=== PATIENT | male | born 1965 | race Caucasian/White ===

== ENCOUNTER → 2023-10-18 | Outpatient (CLI) | payer OTHER | END | disposition home or self-care (01) | LOC: RAH 13:35 | PROVIDERS: ATTEND Internal Medicine Cardiovascular Disease | DX: Z13.6 Encounter for screening for cardiovascular disorders (principal) | CPT/HCPCS: 75571 ==

== ENCOUNTER 2024-02-10 05:48 | Day surgery (SDC) | payer BC ==
[2024-02-08 14:42] LABS: BASOPHILS # (AUTO) 0.05 K/uL (0.00-0.20); BASOPHILS % (AUTO) 0.5 % (0.0-5.0); EOSINOPHILS # (AUTO) 0.17 K/uL (0.00-0.70); EOSINOPHILS % (AUTO) 1.7 % (0.0-8.0); HEMATOCRIT 44.7 % (42-54); IMMATURE GRANULOCYTE ABSOLUTE 0.02 K/uL (0-1); LYMPHOCYTES # (AUTO) 2.1 K/uL (1.0-4.8); LYMPHOCYTES % (AUTO) 21.1 % (21.0-51.0); MEAN CORPUSCULAR HEMOGLOBIN 30.8 pg (27.0-33.0); MEAN CORPUSCULAR VOLUME 90.7 fL (79-99); MONOCYTES # (AUTO) 0.6 K/uL (0.1-1.0); MONOCYTES % (AUTO) 6.3 % (3.0-13.0); NEUTROPHILS # (AUTO) 6.9 K/uL (1.8-7.7); NEUTROPHILS % (AUTO) 70.2 % (40.0-77.0); PLATELET COUNT (AUTO) 253 K/uL (130-400); RED BLOOD CELL COUNT(AUTO) 4.93 MIL/uL (4.50-6.20); RED CELL DISTRIBUTION WIDTH 12.8 % (11.0-15.5); WHITE BLOOD COUNT (AUTO) 9.8 K/uL (4.8-10.8)
[2024-02-08 14:50] LABS: CREATININE 1.1 mg/dL (0.5-1.3); POTASSIUM 4.9 mmol/L (3.5-5.1)
[2024-02-08 14:53] LABS: PARTIAL THROMBOPLASTIN TIME 27.9 SEC (26.3-35.5)
[2024-02-08 15:10] VITALS: BP 138/76; PULSE 53; RESP 14; TEMP 97.6
[2024-02-08 15:11] LABS: B-TYPE NATRIURETIC PEPTIDE 39 pg/mL (0-100)
[2024-02-08 15:17] LABS: APPEARANCE,URINE CLEAR (CLEAR); BILIRUBIN,URINE NEGATIVE (NEGATIVE); COLOR,URINE LIGHT-YELLOW (YELLOW); GLUCOSE, URINE (UA) NEGATIVE (NEGATIVE); KETONES,URINE NEGATIVE (NEGATIVE); LEUKOCYTE ESTERASE ,URINE NEGATIVE Leu/uL (NEGATIVE); NITRATE,URINE NEGATIVE (NEGATIVE); OCCULT BLOOD,URINE NEGATIVE (NEGATIVE); PH,URINE 7.5 (5.0-8.0); PROTEIN,URINE NEGATIVE (NEGATIVE); UROBILINOGEN,URINE 0.2 mg/dL (0.2-1.0)
[2024-02-08 15:18] LABS: ADD UA MICROSCOPIC YES; RBC,URINE 0-1 /HPF (0-1); WBC,URINE 0-1 /HPF (0-1)
[2024-02-08 15:31] LABS: INR 1.08 (0.85-1.15); PROTHROMBIN TIME 11.6 SEC (9.6-11.6)
--- NOTE | 2024-02-08 15:57 | HMCIMG ---
CHEST 1VW REASON: PRE OP COMPARISON: None. FINDINGS: Single view of the chest was obtained. Lungs are clear. Heart size is normal. There is no pulmonary vascular congestion. Mediastinum and bony thorax appear unremarkable. IMPRESSION: 1. Normal single view chest x-ray.
--- NOTE | 2024-02-08 16:26 | EKG ---
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
[~2024-02-10] VITALS: Ht 188 cm; Wt 105.3 kg
[2024-02-10] VITALS (11 sets, daily range): BP systolic 105–147; BP diastolic 64–81; PULSE 52–65; RESP 14–22; TEMP 97.3–98.4
[~2024-02-10 05:48] MED LIST: ASPI-1443 PO; ATOR20TA65 PO; CHOL500051 PO; CYAN50009 PO; FEXOFENADINE PO; ISOS30TA92 PO; LEVO137T2 PO; METO-408 PO; NITR0.4T50 SL; ROSE PO; VITAMIN C PO; ZINC220T4 PO; mvi PO
[2024-02-10] MEDS: 0.9%NACL 1000ML 1,000 ML IV SCH (06:23)
[2024-02-10] MEDS ORDERED: LIDOCAINE HCL 400MG/20ML VIAL ONE (07:06)
[2024-02-10] MEDS ORDERED: HEParin 10,000 UNIT/10ML (1,000 UNIT/ML) VIAL ONE (07:07)
[2024-02-10] MEDS ORDERED: HEParin-NS 1,000 UNIT/500 ML 1,000 ML IV ONE (07:07)
[2024-02-10] MEDS ORDERED: NITROGLYCERIN 50MG VIAL ONE (07:07)
[2024-02-10] MEDS ORDERED: IOHEXOL 350 MG/ML 100ML INFUS..BTL IV ONE (07:07)
[2024-02-10] MEDS ORDERED: IOHEXOL-350 50ML VIAL IV ONE (07:29)
[2024-02-10] MEDS ORDERED: MIDAZOLAM HCL 1 MG/ML 2ML VIAL ONE (07:34)
[2024-02-10] MEDS ORDERED: cloPIDOgrel 300MG TAB ONE (08:03)
--- NOTE | 2024-02-10 08:29 | PRN ---
Cath Procedure Report CATH PROCEDURE REPORT CARDIAC CATHETERIZATION REPORT Date of Service: Feb 10, 2024 Left heart catheterization and PCI report After informed consent the patient was prepped and draped in the usual fashion. He received a total of 1 mg of Versed for conscious sedation. He had in addition 15 cc of 2% xylocaine in the right inguinal area. A six [place] sheath was introduced into the right femoral artery using modified Seldinger technique. A Marlon four right six [place] diagnostic catheter was advanced over guidewire to the aortic root. Wire was removed and catheter engaged into the [place] right coronary artery. The right coronary artery was visualized multiple planes and the catheter was removed. A Marlon four left six [place] diagnostic catheter was advanced over guidewire to the aortic root. Wire was removed and catheter engaged into the left main coronary artery. The left coronary system was visualized multiple planes and catheter was removed. A pigtail catheter was then advanced over guidewire across the aortic valve. Wire was removed and hemodynamics measured. A ventriculogram in the AL projection was performed. A pullback with continuous hemodynamic monitoring was performed and catheter was removed. Findings: The right coronary artery is a right-dominant vessel and has a 50% proximal stenosis. Remainder of the vessel is free of obstruction gives rise to normal PDA and posterolateral branch. The left main coronary artery is a long vessel free of obstruction. 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 The remainder of the vessel was free of obstruction. The circumflex artery is a nondominant vessel. It gives rise to a single large obtuse marginal artery. There was a 60% proximal stenosis in the obtuse marginal artery. LV ejection fraction was 60% with no regional wall motion abnormalities. There was no mitral regurgitation and no aortic stenosis. It was decided to assess the circumflex artery with IFR. The patient received 3000 units of heparin and Marlon four left six [place] guiding catheter was advanced over guidewire to the aortic root. Wire was removed and catheter engaged into the [place] left coronary artery. The IFR wire was advanced to the proximal obtuse marginal artery and normalized. The IFR was then advanced across the area of stenosis and IFR was calculated be 0.95 suggesting that the circumflex lesion she will be treated medically. After discussion with the patient was recommended to proceed with drug-eluting stenting of the mid LAD. The pressure flow wire was then manipulated to the distal LAD and a 2.5 x 12 mm drug-eluting stent was advanced to the area of stenosis and dilated to 12 atmospheres. Stenosis was reduced from 80% to 0% with normal TORRIE flow. There was no dissection. Wires and catheters were removed. Patient received 600 mg of clopidogrel. He had taken aspirin this morning. His ACT postprocedure was 280 and a Perclose closure device applied. The entire procedure was well tolerated without complications. Summary: Successful drug-eluting stent to the culprit mid LAD with a 2.5 by 12 mm drug-eluting stent. Residual 50% proximal RCA and 60% proximal obtuse marginal artery with IFR of 0.95 being managed medically. Report dictated by TRINI Euceda MD, MD Feb 10, 2024 08:29
[2024-02-10] MEDS ORDERED: acetaMINOPHEN WITH coDEINE 1 TAB TAB PO PRN (08:30)
[2024-02-10] MEDS ORDERED: TEMAZepam 30 MG CAP PO PRN (08:30)
[2024-02-10] MEDS ORDERED: ondanSETRON 4MG INJ IVP PRN (08:30)
[2024-02-10] MEDS ORDERED: NITROGLYCERIN 50MG/D5W 250ML 1 BOT IV PRN (08:30)
[2024-02-10] MEDS ORDERED: ASPIRIN 81MG CHEW TAB PO SCH (09:00)
[2024-02-10] MEDS ORDERED: cloPIDOgrel 75MG TAB PO SCH (09:00)
[2024-02-10] MEDS ORDERED: PANTOPrazole 40 MG TAB DR PO SCH (09:00)
[2024-02-10] MEDS: acetaMINOPHEN WITH coDEINE 1 TAB TAB PO PRN (09:33)
== END 2024-02-10 12:30 | disposition home or self-care (01) ==
LOC: DAH 05:48
PROVIDERS: ATTEND Internal Medicine Cardiovascular Disease
DX: R94.39 Abnormal result of other cardiovascular function study (principal); I25.119 Atherosclerotic heart disease of native coronary artery with unspecified angina pectoris; R93.1 Abnormal findings on diagnostic imaging of heart and coronary circulation; E78.5 Hyperlipidemia, unspecified; E03.9 Hypothyroidism, unspecified; Z79.82 Long term (current) use of aspirin; Z79.01 Long term (current) use of anticoagulants; Z79.899 Other long term (current) drug therapy
CPT/HCPCS: 80048; 83880; 85025; 85610; 85730; 81001; 36415 ×2; 71045; 93005; 93458; 93571; 85347; C9600; C1887; C1894; C1874; C1760; C1769; Q9965; J3490 ×2; J7030; J1644 ×2; J2250; Q9967 ×2; A4215; A4222; A4221; A4663; A4216; A4606; A4223 ×3; 99156; 99157

== ENCOUNTER 2024-02-15 20:17 | Observation (INO) | payer BC ==
[~2024-02-15] VITALS: Ht 188 cm; Wt 103.6 kg
[~2024-02-15 20:17] MED LIST changes: -ISOS30TA92 PO
[2024-02-15] MEDS ORDERED: NITROGLYCERIN 0.4 MG SL TAB SL PRN (20:30)
[2024-02-15 21:07] LABS: BASOPHILS # (AUTO) 0.06 K/uL (0.00-0.20); BASOPHILS % (AUTO) 0.6 % (0.0-5.0); EOSINOPHILS # (AUTO) 0.29 K/uL (0.00-0.70); EOSINOPHILS % (AUTO) 3.1 % (0.0-8.0); HEMATOCRIT 45.3 % (42-54); IMMATURE GRANULOCYTE ABSOLUTE 0.02 K/uL (0-1); LYMPHOCYTES % (AUTO) 31.6 % (21.0-51.0); MEAN CORPUSCULAR HEMOGLOBIN 30.4 pg (27.0-33.0); MEAN CORPUSCULAR HGB CONC 34.4 g/dL (32.0-36.0); MEAN CORPUSCULAR VOLUME 88.1 fL (79-99); MONOCYTES # (AUTO) 0.7 K/uL (0.1-1.0); MONOCYTES % (AUTO) 7.5 % (3.0-13.0); NEUTROPHILS # (AUTO) 5.3 K/uL (1.8-7.7); PLATELET COUNT (AUTO) 255 K/uL (130-400); RED BLOOD CELL COUNT(AUTO) 5.14 MIL/uL (4.50-6.20); RED CELL DISTRIBUTION WIDTH 12.6 % (11.0-15.5); WHITE BLOOD COUNT (AUTO) 9.3 K/uL (4.8-10.8)
[2024-02-15 21:09] LABS: APPEARANCE,URINE CLEAR (CLEAR); BILIRUBIN,URINE NEGATIVE (NEGATIVE); COLOR,URINE COLORLESS (YELLOW); GLUCOSE, URINE (UA) NEGATIVE (NEGATIVE); KETONES,URINE NEGATIVE (NEGATIVE); LEUKOCYTE ESTERASE ,URINE NEGATIVE Leu/uL (NEGATIVE); NITRATE,URINE NEGATIVE (NEGATIVE); OCCULT BLOOD,URINE NEGATIVE (NEGATIVE); PH,URINE 6.5 (5.0-8.0); PROTEIN,URINE NEGATIVE (NEGATIVE); UROBILINOGEN,URINE 0.2 mg/dL (0.2-1.0)
[2024-02-15] MEDS: ASPIRIN 81MG CHEW TAB PO STA (21:10)
[2024-02-15] MEDS: ondanSETRON 4MG INJ IVP STA (21:10)
[2024-02-15] MEDS: morPHINE 2 MG SYG IVP STA (21:11)
[2024-02-15 21:14] LABS: ADD UA MICROSCOPIC NO
[2024-02-15 21:21] LABS: CREATININE 1.1 mg/dL (0.5-1.3); POTASSIUM 3.8 mmol/L (3.5-5.1)
[2024-02-15 21:33] LABS: B-TYPE NATRIURETIC PEPTIDE 9 pg/mL (0-100)
--- NOTE | 2024-02-15 22:03 | ERN ---
ED Note History of Present Illness Stated Complaint: C/O CP WITH SOB ONSET 1600 TODAY Chief Complaint: Chest Pain Time Seen by MD: 20:20 Time Seen by Midlevel: 20:25 Dictation: 58-year-old with a history of hypothyroidism coming in complaining of chest tightness onset a few hours ago while he was driving. Patient states she had a recent stent placement on by Dr. Adair. Denies having any fever, nausea, vomiting, cough, congestion. Allergies: Uncoded Allergies: CAT DANDRUFF (Allergy, Unknown, 02/08/24) Home Meds Reported Medications [vitamin c w/awilda] No Conflict Check, 1 TAB PO DAILY 02/08/24 [mvi] No Conflict Check, 1 TAB PO DAILY 02/08/24 Cholecalciferol (Vitamin D3) (Vitamin D3) 125 Mcg (5000 Unit) Capsule, 1 CAP PO DAILY for 30 Days, #30 CAP 0 Refills 02/08/24 Zinc Sulfate (Zinc) 50 Mg Zinc (220 Mg) Tablet, 50 MG PO DAILY, TAB 02/08/24 Cyanocobalamin (Vitamin B-12) (Vitamin B12) 5,000 Mcg Tab.rapdis, 1 TAB PO DAILY for 30 Days, #30 TAB 0 Refills 02/08/24 [fexofenadine] No Conflict Check, 1 TAB PO AM 02/08/24 Aspirin (Aspirin EC) 81 Mg Tablet.dr, 1 TAB PO DAILY for 30 Days, #30 TAB 0 Refills 02/08/24 Atorvastatin Calcium (Atorvastatin Calcium) 20 Mg Tablet, 1 TAB PO DAILY 02/08/24 Metoprolol Succinate (Metoprolol Succinate) 25 Mg Tab.er.24h, 0.5 TAB PO DAILY 02/08/24 Nitroglycerin (Nitroglycerin) 0.4 Mg Tab.subl, 1 TAB SL AD PRN for CHEST PAIN 02/08/24 Levothyroxine Sodium (Levothyroxine Sodium) 137 Mcg Tablet, 1 TAB PO DAILY 02/08/24 Discontinued Reported Medications Isosorbide Mononitrate (Isosorbide Mononitrate ER) 30 Mg Tab.er.24h, 0.5 TAB PO DAILY 02/08/24 Past Medical History Past Medical History: Hypothyroid Additional Past Medical Hx: CARDIAC STENT Surgical History: Other Surgical History Other: CARDIAC STENT Review of System Dictation Constitutional: Negative for fever,chills, and weight loss Eyes: Negative for injury, pain,redness, and discharge ENT: Negative for injury,pain or swelling Cardiovascular: complaining of chest pain. No palpitations, and no edema Respiratory: Negative for shortness of breath, cough, and wheezing, Abdomen/GI: Negative for abdominal pain, nausea, vomiting, diarrhea, and constipation Back: Negative for injury and pain : Negative for injury, bleeding and discharge MS/Extremity: Negative for injury and deformity Skin: Negative for rash, and discoloration Neuro: Negative for headache, weakness, numbness, tingling, and seizure Psych: Negative for suicide ideation, homicidal ideation, and hallucinations Review of Systems: was completed Initial Vital Sign VS Vital Signs Date Time Temp Pulse Resp B/P (MAP) Pulse Ox O2 Delivery O2 Flow Rate FiO2 02/15/24 20:21 98.2 67 20 138/86 98 Room Air 02/15/24 21:00 0 21 Physical Exam Dictation General: awake, alert, NAD Head/Face: Normocephalic, atraumatic Eyes: PERRL, EOMI, vision at baseline ENT: oral cavity clear, TMs clear, no signs of infection Neck: Trachea midline, supple, no nuchal rigidity Cardiovascular: RRR, normal S1/S2, No MRGs, no JVD Respiratory: CTAB, no respiratory distress, No rales or wheezes Abdomen: Soft, non-tender, non-distended, normal bowel sounds, no guarding or rebound. Skin: Warm, dry, normal turgor, no rash MS/Extremity: Pulses equal, no cyanosis, neurovascular intact, FROM Neuro: COAx4, GCS 15, strength 5/5, CN 2-12 intact, normal cerebellar exam, normal gait, Psych: Normal behavior, mood, and affect normal Results (Laboratory/Radiology) Laboratory/Radiology Laboratory Tests Test 02/15/24 20:43 02/15/24 21:18 02/15/24 23:17 White Blood Count 9.3 K/uL (4.8-10.8) Red Blood Count 5.14 MIL/uL (4.50-6.20) Hemoglobin 15.6 g/dL (14.0-18.0) Hematocrit 45.3 % (42-54) Mean Corpuscular Volume 88.1 fL (79-99) Mean Corpuscular Hemoglobin 30.4 pg (27.0-33.0) Mean Corpuscular Hemoglobin Concent 34.4 g/dL (32.0-36.0) Red Cell Distribution Width 12.6 % (11.0-15.5) Platelet Count 255 K/uL (130-400) Mean Platelet Volume 9.9 fL (7.5-10.5) Immature Granulocyte % (Auto) 0.2 % (0-1) Neutrophils (%) (Auto) 57.0 % (40.0-77.0) Lymphocytes (%) (Auto) 31.6 % (21.0-51.0) Monocytes (%) (Auto) 7.5 % (3.0-13.0) Eosinophils (%) (Auto) 3.1 % (0.0-8.0) Basophils (%) (Auto) 0.6 % (0.0-5.0) Neutrophils # (Auto) 5.3 K/uL (1.8-7.7) Lymphocytes # (Auto) 3.0 K/uL (1.0-4.8) Monocytes # (Auto) 0.7 K/uL (0.1-1.0) Eosinophils # (Auto) 0.29 K/uL (0.00-0.70) Basophils # (Auto) 0.06 K/uL (0.00-0.20) Absolute Immature Granulocyte (auto 0.02 K/uL (0-1) Nucleated Red Blood Cells 0.0 % (0.0-0.19) Urine Color COLORLESS (YELLOW) Urine Appearance CLEAR (CLEAR) Urine pH 6.5 (5.0-8.0) Urine Specific Isabella 1.011 (1.001-1.031) Urine Protein NEGATIVE mg/dL (NEGATIVE) Urine Glucose (UA) NEGATIVE mg/dL (NEGATIVE) Urine Ketones NEGATIVE mg/dL (NEGATIVE) Urine Occult Blood NEGATIVE (NEGATIVE) Urine Nitrate NEGATIVE (NEGATIVE) Urine Bilirubin NEGATIVE mg/dL (NEGATIVE) Urine Urobilinogen 0.2 mg/dL (0.2-1.0) Urine Leukocyte Esterase NEGATIVE [place]/uL Sodium Level 139 mmol/L (136-145) Potassium Level 3.8 mmol/L (3.5-5.1) Chloride Level 101 mmol/L (101-111) Carbon Dioxide Level 31 mmol/L (21-32) Blood Urea Nitrogen 17 mg/dL (7-18) Creatinine 1.1 mg/dL (0.5-1.3) Glomerular Filtration Rate Calc 78 mL/min (>90) Random Glucose 112 mg/dL (70-105) H Total Calcium 9.4 mg/dL (8.5-10.1) Total Creatine Kinase 115 U/L (21-232) Troponin I High Sensitivity < 4 ng/L (4-75) L 4 ng/L (4-75) B-Type Natriuretic Peptide 9 pg/mL (0-100) Troponin I < 0.05 ng/mL (0.00-0.05) Labs Reviewed?: Yes EKG Comment: Date:02/15/24 Time:2018 Ventricular rate:61 UT interval:187 QRS duration:4 QT/QTc:388/393 EKG interpretation: Sinus rhythm Reviewed by ED Attending no STEMI interpreted by ER MD ED Course ED Course Orders Procedure Category Date Status Time Vital Signs Per CPOE 02/15/24 Transmitted Routine 20:20 B-Type Natriuretic LAB 02/15/24 Complete Peptide 20:20 Chest 1vw RAD 02/15/24 Resulted 20:20 12 Lead Ekg Tracing- EKG 02/15/24 Logged Technical 20:20 Oxygen By Nc/Pulse Ox CPOE 02/15/24 Transmitted 20:20 Maintain Iv CPOE 02/15/24 Transmitted 20:20 Iv Insertion CPOE 02/15/24 Transmitted 20:20 Cardiac Monitoring CPOE 02/15/24 Transmitted 20:20 Pulse Oximetry With CPOE 02/15/24 Transmitted Vs And Prn 20:20 Cbc With Differential LAB 02/15/24 Complete 20:20 Activity: Br W/Brp CPOE 02/15/24 Transmitted With Assist 20:20 Creatine Kinase, Total LAB 02/15/24 Complete 20:20 Urinalysis Profile LAB 02/15/24 Complete 20:20 Troponin Poc Order LAB 02/15/24 Complete Only 20:20 Bedside Troponin-I LAB.ER 02/15/24 In Process (Poc) 20:20 Basic Metabolic Panel LAB 02/15/24 Complete 20:20 Troponin I High LAB 02/15/24 Complete Sensitivity 20:23 Aspirin 81mg Chew Tab PHA 02/15/24 Complete (Aspirin 81mg Chew 20:24 Morphine 2mg Syg PHA 02/15/24 Complete (Morphine 2mg Syg) 20:24 Ondansetron 4mg Inj PHA 02/15/24 Complete (Zofran 4mg Inj) 20:24 Nitroglycerin 0.4mg PHA 02/15/24 In Process Sl Tab (Nitrostat) 20:30 Troponin I High LAB 02/15/24 Complete Sensitivity 23:10 Current Medications Medications (Trade) Dose Ordered Sig/Flory Route PRN Reason Start Time Stop Time Status Last Admin Dose Admin Aspirin (Aspirin 81mg Chew Tab) 324 mg ONCE STAT PO 02/15/24 20:24 02/15/24 20:25 DC 02/15/24 21:10 Morphine Sulfate (morPHINE 2MG SYG) 2 mg ONCE STAT IVP 02/15/24 20:24 02/15/24 20:25 DC 02/15/24 21:11 Nitroglycerin (Nitrostat) 0.4 mg AD PRN SL CHEST PAIN 02/15/24 20:30 03/16/24 20:29 Ondansetron HCl (zoFRAN 4MG INJ) 4 mg ONCE STAT IVP 02/15/24 20:24 02/15/24 20:25 DC 02/15/24 21:10 Vital Signs Date Time Temp Pulse Resp B/P (MAP) Pulse Ox O2 Delivery O2 Flow Rate FiO2 02/15/24 23:06 51 14 120/76 96 Room Air* 0 21 02/15/24 21:00 98.4 60 14 120/71 96 Room Air* 0 21 02/15/24 20:21 98.2 67 20 138/86 98 Room Air HEART Score Response (Comments) Value History: Moderate suspicion (+1) 1 EKG: Normal 0 Age: 45-65yrs (+1) 1 Risk Factors: 1-2 risk factors (+1) 1 Initial Troponin: Normal limit (0) 0 HEART Score Risk: Low Risk for MACE (1-3) Total 3 Medical Decision Making MDM MDM: 58-year-old with a history of hypothyroidism coming in complaining of chest tightness onset a few hours ago while he was driving. Patient states she had a recent stent placement on by Dr. Adair. Denies having any fever, nausea, vomiting, cough, congestion. Blood work is unremarkable. Both troponins are negative. EKGs shows sinus rhythm. However after nitro, morphine patient states his chest pain came back. States not as severe as when he arrived but still having some chest pain 2/10. We will admit patient for obse rvation. Spoke to FLACO Meyer for benchmark, okay to admit patient. Differential diagnosis: ACS, chest wall pain, atypical chest pain Rationale: Tests considered and ordered secondary to shared decision making include: labs, ECG and radiology Previous outside records reviewed: Old ER visits. Risk of complication and/or morbidity or mortality of patient management: None Medications-Per medication reconciliation Need for hospitalization: Patient does meet criteria for hospitalization. Need for emergency major/minor surgery: No There are no social concerns with this patient. Prescription drug management Prescriptions will include symptomatic care Patient's prior external medical records from other ER visits were reviewed by me as indicated. Prior testing and results from previous visits were reviewed. Prior tests were taken into account with medical decision making and resource utilization, independent historian/historians were used to obtain complete medical history. I independently interpreted the test that were performed, results were reviewed by me and considered findings on radiology if ordered. Medical management and examination interpretation discussions were had by me with other qualified healthcare professionals as indicated for the patient's care. DX & DISP Disposition: Inpatient Decision to Admit Date: Feb 16, 2024 Decision to Admit Time: 00:13 Departure Impression: Primary Impression: Chest pain Condition: Stable Referrals: CAMRYN AGOSTO MD (PCP) I have reviewed the case, and I agree with, Diagnosis and Plan JANET CANALES NP Feb 15, 2024 22:02
--- NOTE | 2024-02-15 22:12 | HMCIMG ---
CHEST 1VW HISTORY: Chest pain COMPARISON: 02/08/2024 FINDINGS: A frontal projection of the chest was obtained. No acute pulmonary infiltrates is seen. The heart is normal in size. Degenerative changes are seen. Prominent interstitial markings are seen. No evidence of aortic calcification is seen. IMPRESSION: 1. No acute pulmonary infiltrate is seen.
[2024-02-16] MEDS ORDERED: ondanSETRON 4MG INJ IVP PRN ×2 (00:30→13:00)
[2024-02-16] MEDS ORDERED: morPHINE 4 MG SYG IVP PRN (00:30)
[2024-02-16] MEDS ORDERED: TEMAZepam 15 MG CAPSULE PO PRN (00:30)
[2024-02-16] MEDS ORDERED: LACTULOSE 20 GM/30 ML UDCUP PO PRN (00:30)
[2024-02-16] MEDS ORDERED: acetaMINOPHEN 325 MG TAB PO PRN (00:30)
[2024-02-16] MEDS ORDERED: acetaMINOPHEN 650 MG SUPPOSITORY RC PRN (00:30)
[2024-02-16] MEDS ORDERED: hydrALAZine 20MG/ML VIAL IV PRN (00:30)
--- NOTE | 2024-02-16 00:33 | HP ---
[facility] HISTORY & PHYSICAL Date Patient Seen: Feb 16, 2024 Time of Visit: 00:33 Supervising Physician: Dr. Dumont Primary Care Physician: CAMRYN AGOSTO MD (PCP) Outpatient Specialists: Inpatient Consults: Cardiology PROBLEM LIST: Acute chest pain r/o coronary syndrome, negative troponin x3 -s/p left heart catheterization with cardiac stent on 02/10/[address] Mohit Adair LV ejection fraction was 60% with no regional wall motion abnormality, per cardiac catheterization report on 02/10/2024 Hypertension Hypothyroidism Hypercholesteremia HPI: Ms Garcia is a 58-year-old with a history of hypothyroidism who presented to [facility] ED for evaluation of complaining of chest tightness onset a few hours ago while he was driving. Patient stated she had a recent stent placement on by Dr. Adair. Denies having any shortness of breath, fever, nausea, vomiting, cough, congestion. Labs were remarkable. Troponin negative x3. normal BNP. Chest x-ray: No acute pulmonary infiltrates. EKG: Sinus rhythm, HR 61 beats per minute. Patient was seen/assessed by me in room ED 9. The patient appeared comfortable, denied chest pain during my assessment. Breathing was even, unlabored. I informed the patient of labs, diagnostics, and plan of care. The patient verbalized understanding and is in agreement with the plan. Plan and assessment are listed below. PAST MEDICAL HX: see above PAST SURGICAL HX: Cardiac stents on 02/10/2024 SOCIAL HISTORY: No tobacco, ETOH, or illicit drug use Uncoded Allergies: CAT DANDRUFF (Allergy, Unknown, 02/08/24) REVIEW OF SYSTEMS: 12 point ROS reviewed with patient. Pertinent positives mentioned above. Otherwise negative. PHYSICAL EXAM: GENERAL: Alert, awake oriented x 3 HEENT: EOMI, Sclera non icteric, moist mucosa NECK: Supple, no JVD, trachea midline LUNGS: Clear breath sounds bilaterally. No wheezes HEART: Regular rate and rhythm. Normal S1 and S2, without murmurs ABD: Abdomen soft, nontender. Bowel sounds present EXT: No clubbing cyanosis or edema NEURO: Alert and oriented x3. No neuro deficits noted. Vital Signs (last 8hr) Date Time Temp Pulse Resp B/P (MAP) Pulse Ox O2 Delivery O2 Flow Rate FiO2 02/16/24 00:27 46 14 111/76 96 Room Air* 0 21 02/15/24 23:06 51 14 120/76 96 Room Air* 0 21 02/15/24 21:00 98.4 60 14 120/71 96 Room Air* 0 21 02/15/24 20:21 98.2 67 20 138/86 98 Room Air LABS: Hematology Labs: Test 02/15/24 20:43 Range/Units White Blood Count 9.3 4.8-10.8 K/uL Red Blood Count 5.14 4.50-6.20 MIL/uL Hemoglobin 15.6 14.0-18.0 g/dL Hematocrit 45.3 42-54 % Mean Corpuscular Volume 88.1 79-99 fL Mean Corpuscular Hemoglobin 30.4 27.0-33.0 pg Mean Corpuscular Hemoglobin Concent 34.4 32.0-36.0 g/dL Red Cell Distribution Width 12.6 11.0-15.5 % Platelet Count 255 130-400 K/uL Mean Platelet Volume 9.9 7.5-10.5 fL Immature Granulocyte % (Auto) 0.2 0-1 % Neutrophils (%) (Auto) 57.0 40.0-77.0 % Lymphocytes (%) (Auto) 31.6 21.0-51.0 % Monocytes (%) (Auto) 7.5 3.0-13.0 % Eosinophils (%) (Auto) 3.1 0.0-8.0 % Basophils (%) (Auto) 0.6 0.0-5.0 % Neutrophils # (Auto) 5.3 1.8-7.7 K/uL Lymphocytes # (Auto) 3.0 1.0-4.8 K/uL Monocytes # (Auto) 0.7 0.1-1.0 K/uL Eosinophils # (Auto) 0.29 0.00-0.70 K/uL Basophils # (Auto) 0.06 0.00-0.20 K/uL Absolute Immature Granulocyte (auto 0.02 0-1 K/uL Nucleated Red Blood Cells 0.0 0.0-0.19 % Chemistry Labs: Test 02/15/24 23:17 02/15/24 21:18 02/15/24 20:43 Range/Units Troponin I High Sensitivity 4 4-75 ng/L Troponin I < 0.05 0.00-0.05 ng/mL Sodium Level 139 136-145 mmol/L Potassium Level 3.8 3.5-5.1 mmol/L Chloride Level 101 101-111 mmol/L Carbon Dioxide Level 31 21-32 mmol/L Blood Urea Nitrogen 17 7-18 mg/dL Creatinine 1.1 0.5-1.3 mg/dL Glomerular Filtration Rate Calc 78 >90 mL/min Random Glucose 112 H 70-105 mg/dL Total Calcium 9.4 8.5-10.1 mg/dL Total Creatine Kinase 115 21-232 U/L B-Type Natriuretic Peptide 9 0-100 pg/mL DIAGNOSTICS / RADIOLOGY RESULTS: [ ] PLAN Admit to medical floor with telemetry monitoring. Troponin and EKGs series. Cardiology consult in a.m.. 2D echo in a.m. with heart clinic to read. P.r.n. medications for: Fever, nausea, vomiting, constipation, hypertension. Oxygen supplementation as needed to maintain oxygen level equal to greater than 92%. Nitroglycerin sublingually as needed for chest pain. Fvadjhl40 mg p.o. daily. Atorvastatin 40 mg p.o. daily. Blood pressure checks every4 hours and as needed. Reconciled home meds: Isosorbide Mononitrate, Plavix, metoprolol succinate, aspirin, atorvastatin, nitroglycerin sublingual. Reconciled remaining medications once available. Glucometer checks a.c. and HS with insulin regular sliding scale. Monitor renal and liver function. Monitor electrolytes and treat accordingly. A.m. labs: CBC, CMP, Mag, phos, TSH, A1c, troponin. DVT and GI prophylaxis: Lovenox and Pepcid. NEURO: Minimize central acting medications as possible. Maintain fall precautions, adequate lighting during the day PULMONARY: Supplemental 02 as needed. Maintain aspiration precautions at all times CARDIOVASCULAR: Follow hemodynamics. Vital signs per facility protocol GI & NUTRITION: Continue with nutritional support. Continue stool softeners and laxatives as needed. KIDNEYS & ELECTROLYTES: Strict monitoring of intake, output and overall fluid balance. Avoid nephrotoxic medications to the extent possible. Medications to be dosed according to renal function. Monitor electrolytes and replace as needed ENDOCRINE: Maintain blood glucose between 100-180 at all times. Hypoglycemia protocol in place INFECTIOUS DISEASE: Trend temperature, WBC and procalcitonin level Follow cultures, deescalate antibiotics as soon as possible. Panculture if new onset fever ONCOLOGY/HEMATOLOGY/COAGULATION: Monitor for s/s of bleeding Monitor hemoglobin, coagulation studies as needed SKIN: Pressure ulcer prevention per facility protocol Specialty mattress ORTHO/REHAB: Continue PT/OT Prophylaxis: Continue GI and DVT prophylaxis Code Status: Full Resuscitation Disposition: MANOJ PEÑA Feb 16, 2024 00:33
[2024-02-16] MEDS: atorVAStatin 40 MG TABLET PO SCH (01:05)
[2024-02-16] MEDS: NITROGLYCERIN 1GM OINT 1 INCH/1GM TD SCH (01:06)
[2024-02-16 06:23] LABS: HEMOGLOBIN A1C 5.5 % (4.0-6.0)
--- NOTE | 2024-02-16 06:58 | NUR ---
REPORT RECEIVED FROM VAN LUCIO
[2024-02-16] MEDS: INSULIN humuLIN R 100 UNIT/ML 3ML SQ SCH (07:30)
--- NOTE | 2024-02-16 07:30 | NUR ---
ASSESSMENT: PT FOUND IN SUPINE POSITION W/HOB ELEVATED SEMI FOWLERS. CURRENTLY PT DENIES SOB/CP. HE SAYS IT IS INTERMITTENT PRICKS TO HIS CHEST. CARDIO/PULMONARY: PT CURRENTLY DENIES ANY CP AT THIS MOMENT. S1S2 AUSCULTATED APICALLY. SB/SR NO ECTOPY NOTED. 2+PULSES TO BILATERALLY RADIAL/DORSALIS PEDAL SITES. NO EDEMA NOTED TO LE'S BILATERALLY. CAP REFILL LESS THAN 3 SECONDS. LSCTA TO ALL LUNG OWENS. NO CYANOSIS NOTED TO BILATERAL NAIL BEDS ON HANDS. PT DENIES SOB AT THIS TIME AND SATS>96% ROOM AIR OXYGEN. SALINE LOCK TO L AC NEURO: PT A/O X 4. FOLLOWS ALL COMMANDS BOTH SIMPLE AND COMPLEX. PT NEUROLOGICALLY INTACT. MUSCULO/INTEG: PT ABLE TO MOVE ALL EXTREMITIES W/OUT LIMITATIONS. DENIES ANY COMPLAINTS AT THIS TIME. PT SKIN INTACT. THERE IS BRUISING TO R GROIN AREA WHERE HIS HEART CATH WAS DONE LAST WEDNESDAY/7 DAYS PRIOR. OTHERWISE SKIN IS DRY TO PALPATION. PT STATES HE IS ABLE TO AMBULATE W/OUT ANY DIFFICULTIES GI/: ABD SOFT TO PALPATION. DENIES ABD PAIN. DENIES CONSTIPATION. DENIES ANY URINARY ISSUES/COMPLAINTS AT THIS TIME. PT
--- NOTE | 2024-02-16 08:21 | EKG ---
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
--- NOTE | 2024-02-16 08:39 | NUR ---
2 D ECHO: TECH JUST ARRIVED AT BEDSIDE.
--- NOTE | 2024-02-16 08:45 | NUR ---
MOHSEN LICENSING ENGINEER WAS AT BEDSIDE TO SEE THE PT.
[2024-02-16] MEDS ORDERED: ISOSORBIDE MONO 30MG SR TAB PO SCH ×2 (09:00)
[2024-02-16] MEDS: ENOXAPARIN SODIUM 40 MG/0.4 ML SYRINGE SQ SCH (09:00)
[2024-02-16] MEDS: metOPROLol sucCINATE 25 MG TAB.SR.24H PO SCH (09:00)
[2024-02-16] MEDS ORDERED: METO-408 PO (09:02)
[2024-02-16] MEDS ORDERED: CLOP-31 PO (09:02)
--- NOTE | 2024-02-16 09:05 | NUR ---
MEDICATION RECONCILIATION: DONE
--- NOTE | 2024-02-16 09:20 | NUR ---
CARDIOLOGY CONSULT: GEN STRICKLAND HERE TO SEE THE PT.
--- NOTE | 2024-02-16 09:34 | NUR ---
CARDIOLOGY CONSULT: DR STUART JUST NOW ARRIVED AND IS AT BEDSIDE. HE WAS INFORMED WELL PTS SBP IN THE 90-LOW 100'S.
[2024-02-16] MEDS ORDERED: 0.9% NACL 500ML IV.SOLN 500 ML IV SCH (10:00)
--- NOTE | 2024-02-16 10:00 | NUR ---
BP MED HELD D/T BPS IN THE 90-LOW 100'S. DR STUART WAS MADE AWARE AND NO NEW CHANGES AT THIS TO MED DOSE.
--- NOTE | 2024-02-16 10:30 | NUR ---
HEART CATH: JORGE L BELTRÁN RN-HOLD LOVENOX BUT GIVE PLAVIX DOSE.
[2024-02-16] MEDS: ASPIRIN 81MG CHEW TAB PO SCH (10:37)
[2024-02-16] MEDS: doCUSate SODIUM 100 MG CAP PO PRN (10:37)
[2024-02-16] MEDS: cloPIDOgrel 75MG TAB PO SCH (10:37)
[2024-02-16] MEDS: FAMOTIDINE 20MG TAB PO SCH (10:37)
--- NOTE | 2024-02-16 10:40 | CONS ---
[facility] CARDIOLOGY CONSULTATION REPORT Cardiology consultation note dictated for Mohit Adair MD Date Patient Seen: Feb 16, 2024 Requesting Physician: EMELIA Coffman Reason for Consultation: Chest pain History of Present Illness: This is a 58 year old male with a past medical history of dyslipidemia, hypothyroidism, cardiac murmur, normal nuclear stress test year unknown in [facility], [place] coronary calcium score of 312, a subsequent graded exercise tolerance test was positive in [facility] stage 2, and recent LHC on 02/10/2024 with successful drug-eluting stent to the culprit mid LAD with a 2.5x12 mm MARYAM, there is residual 50% stenosis to the proximal RCA and 60% stenosis to the proximal obtuse marginal artery with IFR of 0.95 being managed medically who presented to the ED with complaints of left-sided chest pressure/tightness that has been intermittent. Cardiology has been consulted for recommendations. Troponins have been negative x3. EKG demonstrating normal sinus rhythm with a heart rate of 61bpm with no signs of ischemia present. The patient voices compliance with aspirin and Plavix. An echocardiogram has been done. He currently denies palpitations, shortness of breath, dizziness, nausea, or vomiting does admit to intermittent, left-sided chest discomfort. We will take the patient for a LHC today for further evaluation. Past Medical History: As per HPI and summarized below Past Surgical History: None Family History: The patient's mother has hypertension and heart disease. The patient's father has hypertension. The patient's sibling has diabetes mellitus type 2. Social History: The patient lives with his . Habits: The patient denies alcohol, tobacco, or illicit drug use. Home Meds: Uciptc94 mg daily Vjwvceb45 mg daily Atorvastatin 20 mg daily Metoprolol tespjylil25 mg daily [id number] mcg daily Nitroglycerin 0.4 mg sublingual p.r.n. chest pain Vitamin-D 5000 units daily Vitamin B12 5000 mcg daily Zinc sulfate 50 mg daily Multivitamin tab daily Vitamin-C with awilda 1 tab daily Fexofenadine 1 tab daily Current Meds: Current Medications Medications Dose Ordered Sig/Flory Start Time Stop Time Status Last Admin Nitroglycerin 0.4 mg AD PRN 02/15/24 20:30 03/16/24 20:29 Famotidine 20 mg BID 02/16/24 09:00 03/17/24 08:59 Enoxaparin Sodium 40 mg DAILY 02/16/24 09:00 03/17/24 08:59 Acetaminophen 650 mg Q6H PRN 02/16/24 00:30 03/17/24 00:29 Acetaminophen 650 mg Q6H PRN 02/16/24 00:30 03/17/24 00:29 Lactulose 20 gm Q6H PRN 02/16/24 00:30 03/17/24 00:29 Docusate Sodium 100 mg BID PRN 02/16/24 00:30 03/17/24 00:29 Temazepam 15 mg HS PRN 02/16/24 00:30 03/17/24 00:29 Ondansetron HCl 4 mg Q6H PRN 02/16/24 00:30 03/17/24 00:29 Hydralazine HCl 10 mg Q2H PRN 02/16/24 00:30 03/17/24 00:29 Insulin Human Regular INSULIN SLIDING SCAL... ACHS 02/16/24 07:30 03/17/24 07:29 Atorvastatin Calcium 40 mg HS 02/16/24 00:35 03/17/24 00:34 02/16/24 01:05 Aspirin 81 mg DAILY 02/16/24 09:00 03/17/24 08:59 Metoprolol Succinate 25 mg DAILY 02/16/24 09:00 03/17/24 08:59 Clopidogrel Bisulfate 75 mg DAILY 02/16/24 09:00 03/17/24 08:59 Morphine Sulfate 2 mg Q4H PRN 02/16/24 08:30 02/23/24 00:29 Levothyroxine Sodium 25 mcg SYN 02/17/24 06:30 03/18/24 06:29 Levothyroxine Sodium 112 mcg SYN 02/17/24 06:30 03/18/24 06:29 Sodium Chloride 500 ml @ 0 mls/hr Q0M 02/16/24 10:00 03/17/24 09:59 Review of Systems: CONST: No fever, fatigue, or weight changes. EYES: No recent vision problems. ENT: No congestion, ear pain, or sore throat. C/V: No palpitations or edema. Admits to intermittent left-sided chest discomfort RESP: No cough, congestion, wheezing or shortness of breath. GI: No abdominal pain, nausea, vomiting, constipation, or diarrhea. : No incontinence or dysuria. SKIN: No rash. NEURO: No headache, focal numbness or weakness, dizziness, or seizures. PSYCH: No depression or anxiety. HEME: No abnormal bruising or bleeding. LYMPH: No swollen glands. Physical Examination: GENERAL: No acute distress. HEAD: Normal with no signs of head trauma. EYES: PERRLA, EOMI, conjunctiva and sclera normal. ENT: Hearing grossly intact, normal oropharynx. NECK: Supple without JVD. There is no tenderness, lymphadenopathy, or masses. No thyromegaly. Normal carotid upstrokes without bruits. LUNGS: Clear breath sounds bilaterally. No wheezes, or rhonchi. HEART: Normal rate and rhythm. Normal S1 and S2 without murmurs, gallop or rub. VASC: Bilateral DP pulses 2+. ABD: Bowel sounds normal, soft, nontender, no masses, no organomegaly. No audible bruits. : Not examined LYMPH: No lymphadenopathy noted. EXT: No clubbing, cyanosis or edema. SKIN: No rashes or lesions noted. Right groin is soft to touch with Band-Aid in place NEURO: Awake, alert, and oriented x3. No focal sensory or strength deficits noted. Vital Signs (last 8hr) Date Time Temp Pulse Resp B/P (MAP) Pulse Ox O2 Delivery O2 Flow Rate FiO2 02/16/24 06:34 47 14 90/54 95 Room Air* 0 21 02/16/24 04:44 47 14 97/57 94 Room Air* 0 21 Laboratory: Hematology Labs: Test 02/15/24 20:43 Range/Units White Blood Count 9.3 4.8-10.8 K/uL Red Blood Count 5.14 4.50-6.20 MIL/uL Hemoglobin 15.6 14.0-18.0 g/dL Hematocrit 45.3 42-54 % Mean Corpuscular Volume 88.1 79-99 fL Mean Corpuscular Hemoglobin 30.4 27.0-33.0 pg Mean Corpuscular Hemoglobin Concent 34.4 32.0-36.0 g/dL Red Cell Distribution Width 12.6 11.0-15.5 % Platelet Count 255 130-400 K/uL Mean Platelet Volume 9.9 7.5-10.5 fL Immature Granulocyte % (Auto) 0.2 0-1 % Neutrophils (%) (Auto) 57.0 40.0-77.0 % Lymphocytes (%) (Auto) 31.6 21.0-51.0 % Monocytes (%) (Auto) 7.5 3.0-13.0 % Eosinophils (%) (Auto) 3.1 0.0-8.0 % Basophils (%) (Auto) 0.6 0.0-5.0 % Neutrophils # (Auto) 5.3 1.8-7.7 K/uL Lymphocytes # (Auto) 3.0 1.0-4.8 K/uL Monocytes # (Auto) 0.7 0.1-1.0 K/uL Eosinophils # (Auto) 0.29 0.00-0.70 K/uL Basophils # (Auto) 0.06 0.00-0.20 K/uL Absolute Immature Granulocyte (auto 0.02 0-1 K/uL Nucleated Red Blood Cells 0.0 0.0-0.19 % Chemistry Labs: Test 02/16/24 08:39 02/16/24 05:47 02/15/24 21:18 02/15/24 20:43 Range/Units Whole Blood Glucose 93 70-110 MG/DL Hemoglobin A1c 5.5 4.0-6.0 % Estimated Average Glucose (eAG) 111 70-126 mg/dL Troponin I High Sensitivity 4 4-75 ng/L Thyroid Stimulating Hormone (TSH) 1.90 0.36-3.74 uIU/mL Troponin I < 0.05 0.00-0.05 ng/mL Sodium Level 139 136-145 mmol/L Potassium Level 3.8 3.5-5.1 mmol/L Chloride Level 101 101-111 mmol/L Carbon Dioxide Level 31 21-32 mmol/L Blood Urea Nitrogen 17 7-18 mg/dL Creatinine 1.1 0.5-1.3 mg/dL Glomerular Filtration Rate Calc 78 >90 mL/min Random Glucose 112 H 70-105 mg/dL Total Calcium 9.4 8.5-10.1 mg/dL Total Creatine Kinase 115 21-232 U/L B-Type Natriuretic Peptide 9 0-100 pg/mL Diagnostics / Radiology: Impression and Plan: Chest pain Coronary angiogram on 02/10/2024 s/p mid LAD stenting with a 2.5x12mm MARYAM Residual 50% stenosis to the proximal RCA and 60% stenosis to the proximal obtuse marginal artery with IFR of 0.[address] coronary calcium score and positive graded exercise tolerance test Hypothyroidism Dyslipidemia Chest pain Troponins have been negative x3 EKG demonstrated normal sinus rhythm with a heart rate of 61bpm with no signs of ischemia present -Due to residual stenosis, the patient will undergo a coronary angiogram with possible PCI today -Continue Plavix 75 mg daily, Aspirin 81 mg daily, Atorvastatin 20 mg daily, Me toprolol succinate 25 mg daily (hold if sbp<100mmHg or hr<60bpm) GEN SHEIKH [facility] Feb 16, 2024 10:40
--- NOTE | 2024-02-16 10:46 | NUR ---
JUST NOW OOB TO VOID AGAIN W/A STEADY AND EVEN GAIT
[2024-02-16] MEDS ORDERED: LIDOCAINE HCL 400MG/20ML VIAL ONE (11:32)
[2024-02-16] MEDS ORDERED: IOHEXOL 350 MG/ML 100ML INFUS..BTL IV ONE (11:32)
[2024-02-16] MEDS ORDERED: HEParin 10,000 UNIT/10ML (1,000 UNIT/ML) VIAL ONE (11:33)
[2024-02-16] MEDS ORDERED: HEParin-NS 1,000 UNIT/500 ML 1,000 ML IV ONE (11:33)
[2024-02-16] MEDS ORDERED: NITROGLYCERIN 50MG VIAL ONE (11:33)
--- NOTE | 2024-02-16 11:37 | NUR ---
KATINA LUCIO FROM [employer] HERE TO VISUAL ASSOCIATE AND TRANSFER PT TO [employer].
[2024-02-16] MEDS ORDERED: FENTanyl CITRate PF 50 MCG/1 ML 2ML VIAL ONE (11:53)
[2024-02-16] MEDS ORDERED: MIDAZOLAM HCL 1 MG/ML 2ML VIAL ONE (11:53)
[2024-02-16] MEDS ORDERED: ATROPINE 1MG SYG IVP ONE (12:06)
--- NOTE | 2024-02-16 12:20 | PN ---
[facility] PROGRESS NOTE Date Patient Seen: Feb 16, 2024 Time of Visit: 12:16 Supervising Physician: Jaki Yuen Primary Care Physician: CAMRYN AGOSTO MD (PCP) Outpatient Specialists: Inpatient Consults: Cardiology PROBLEM LIST: Acute chest pain r/o coronary syndrome, negative troponin x3 -s/p left heart catheterization with cardiac stent on 02/10/[address] Mohit Adair LV ejection fraction was 60% with no regional wall motion abnormality, per cardiac catheterization report on 02/10/2024 Hypertension Hypothyroidism Hypercholesteremia Plan Summary: Supplemental oxygen as needed Telemetry monitoring Trend troponins x3 Continue aspirin Continue atorvastatin Continue Plavix Continue metoprolol Obtain 2D echo Follow Cardiology recs INTERVAL HISTORY: Ms Garcia is a 58-year-old with a history of hypothyroidism who presented to [facility] for evaluation of complaining of chest tightness onset a few hours ago while he was driving. Patient stated she had a recent stent placement on 02/10/[address] Adair. Denies having any shortness of breath, fever, nausea, vomiting, cough, congestion. Labs were remarkable. Troponin negative x3. normal BNP. Chest x-ray: No acute pulmonary infiltrates. EKG: Sinus rhythm, HR 61 beats per minute. Patient was seen/assessed by me in room ED 9. The patient appeared comfortable, denied chest pain during my assessment. Breathing was even, unlabored. I informed the patient of labs, diagnostics, and plan of care. The patient verbalized understanding and is in agreement with the plan. 02/15 - patient was seen and evaluated in the ED accompanied by his . Patient does not appear to be in any acute distress at this time. Patient denies chest discomfort, chest pain or shortness on breath with exertion. Troponins were negative x3. 2D echo has been completed and currently pending report. Patient was seen by Cardiology and plan for left heart catheterization today for further evaluation cardiac stent. We will continue to follow up. REVIEW OF SYSTEMS: 12 point ROS reviewed with patient. Pertinent positives mentioned above. Otherwise negative. PHYSICAL EXAM: GENERAL: Alert, awake oriented x 3 HEENT: EOMI, Sclera non icteric, moist mucosa NECK: Supple, no JVD, trachea midline LUNGS: Clear breath sounds bilaterally. No wheezes HEART: Regular rate and rhythm. Normal S1 and S2, without murmurs ABD: Abdomen soft, nontender. Bowel sounds present EXT: No clubbing cyanosis or edema NEURO: Alert and oriented x3. No neuro deficits noted. Vital Signs (last 8hr) Date Time Temp Pulse Resp B/P (MAP) Pulse Ox O2 Delivery O2 Flow Rate FiO2 02/16/24 09:00 51 17 95/62 98 Room Air* 0 21 02/16/24 06:34 47 14 90/54 95 Room Air* 0 21 02/16/24 04:44 47 14 97/57 94 Room Air* 0 21 LABS: Hematology Labs: Test 02/15/24 20:43 Range/Units White Blood Count 9.3 4.8-10.8 K/uL Red Blood Count 5.14 4.50-6.20 MIL/uL Hemoglobin 15.6 14.0-18.0 g/dL Hematocrit 45.3 42-54 % Mean Corpuscular Volume 88.1 79-99 fL Mean Corpuscular Hemoglobin 30.4 27.0-33.0 pg Mean Corpuscular Hemoglobin Concent 34.4 32.0-36.0 g/dL Red Cell Distribution Width 12.6 11.0-15.5 % Platelet Count 255 130-400 K/uL Mean Platelet Volume 9.9 7.5-10.5 fL Immature Granulocyte % (Auto) 0.2 0-1 % Neutrophils (%) (Auto) 57.0 40.0-77.0 % Lymphocytes (%) (Auto) 31.6 21.0-51.0 % Monocytes (%) (Auto) 7.5 3.0-13.0 % Eosinophils (%) (Auto) 3.1 0.0-8.0 % Basophils (%) (Auto) 0.6 0.0-5.0 % Neutrophils # (Auto) 5.3 1.8-7.7 K/uL Lymphocytes # (Auto) 3.0 1.0-4.8 K/uL Monocytes # (Auto) 0.7 0.1-1.0 K/uL Eosinophils # (Auto) 0.29 0.00-0.70 K/uL Basophils # (Auto) 0.06 0.00-0.20 K/uL Absolute Immature Granulocyte (auto 0.02 0-1 K/uL Nucleated Red Blood Cells 0.0 0.0-0.19 % Chemistry Labs: Test 02/16/24 08:39 02/16/24 05:47 02/15/24 21:18 02/15/24 20:43 Range/Units Whole Blood Glucose 93 70-110 MG/DL Hemoglobin A1c 5.5 4.0-6.0 % Estimated Average Glucose (eAG) 111 70-126 mg/dL Troponin I High Sensitivity 4 4-75 ng/L Thyroid Stimulating Hormone (TSH) 1.90 0.36-3.74 uIU/mL Troponin I < 0.05 0.00-0.05 ng/mL Sodium Level 139 136-145 mmol/L Potassium Level 3.8 3.5-5.1 mmol/L Chloride Level 101 101-111 mmol/L Carbon Dioxide Level 31 21-32 mmol/L Blood Urea Nitrogen 17 7-18 mg/dL Creatinine 1.1 0.5-1.3 mg/dL Glomerular Filtration Rate Calc 78 >90 mL/min Random Glucose 112 H 70-105 mg/dL Total Calcium 9.4 8.5-10.1 mg/dL Total Creatine Kinase 115 21-232 U/L B-Type Natriuretic Peptide 9 0-100 pg/mL DIAGNOSTICS / RADIOLOGY RESULTS: [ ] PLAN Admit to medical floor with telemetry monitoring. Troponin and EKGs series. Cardiology consult in a.m.. 2D echo in a.m. with heart clinic to read. P.r.n. medications for: Fever, nausea, vomiting, constipation, hypertension. Oxygen supplementation as needed to maintain oxygen level equal to greater than 92%. Nitroglycerin sublingually as needed for chest pain. Xtungnh00 mg p.o. daily. Atorvastatin 40 mg p.o. daily. Blood pressure checks every4 hours and as needed. Reconciled home meds: Isosorbide Mononitrate, Plavix, metoprolol succinate, aspirin, atorvastatin, nitroglycerin sublingual. Reconciled remaining medications once available. Glucometer checks a.c. and HS with insulin regular sliding scale. Monitor renal and liver function. Monitor electrolytes and treat accordingly. A.m. labs: CBC, CMP, Mag, phos, TSH, A1c, troponin. DVT and GI prophylaxis: Lovenox and Pepcid. NEURO: Minimize central acting medications as possible. Maintain fall precautions, adequate lighting during the day PULMONARY: Supplemental 02 as needed. Maintain aspiration precautions at all times CARDIOVASCULAR: Follow hemodynamics. Vital signs per facility protocol Continue cardioprotective medication Left heart catheterization today GI & NUTRITION: Continue with nutritional support. Continue stool softeners and laxatives as needed. KIDNEYS & ELECTROLYTES: Strict monitoring of intake, output and overall fluid balance. Avoid nephrotoxic medications to the extent possible. Medications to be dosed according to renal function. Monitor electrolytes and replace as needed ENDOCRINE: Maintain blood glucose between 100-180 at all times. Hypoglycemia protocol in place INFECTIOUS DISEASE: Trend temperature, WBC and procalcitonin level Follow cultures, deescalate antibiotics as soon as possible. Panculture if new onset fever ONCOLOGY/HEMATOLOGY/COAGULATION: Monitor for s/s of bleeding Monitor hemoglobin, coagulation studies as needed SKIN: Pressure ulcer prevention per facility protocol Specialty mattress ORTHO/REHAB: Continue PT/OT Prophylaxis: Continue GI and DVT prophylaxis Code Status: Full Resuscitation Disposition: Home once cleared by Cardiology. Total time spent 30 minutes. ATTESTATION BY PHYSICIAN The patient has been seen and evaluated, the case has been discussed with the ELECTRONIC COILS SUPERVISOR, I agree with the clinical findings and plan of care. Yung Yuen MD, ECTOR N ELECTRONIC COILS SUPERVISOR Feb 16, 2024 12:20
[2024-02-16] MEDS ORDERED: cloPIDOgrel 75MG TAB ONE (12:48)
--- NOTE | 2024-02-16 12:56 | PRN ---
Cath Procedure Report CATH PROCEDURE REPORT CARDIAC CATHETERIZATION REPORT Date of Service: Feb 16, 2024 This patient underwent recent stenting of the mid LAD with a 2.5 x 12 mm drug- eluting stent. He had a residual 60% circumflex artery and residual 50% RCA stenosis. He presented back to the hospital with recurrent chest pain similar to his initial angina. Troponins are normal and EKG was normal. After discus gopi of options the patient requested to proceed with left heart catheterization and possible PCI. After informed consent was brought to the cleaning laborer and prepped and draped in the usual fashion. He received 1 mg of Versed for conscious sedation. He received a total of 15 cc of 2% xylocaine in the left inguinal area. At that point a six Telugu sheath was placed in the left femoral artery using modified Seldinger technique. A Marlon four left six Telugu diagnostic catheter was advanced over guidewire to the aortic root. Wire was removed and catheter engaged the left main coronary artery. The left coronary system was visualized in multiple planes the catheter was removed. Findings: The left main coronary artery is free of obstruction. The left circumflex artery is free of obstruction is a small nondominant vessel. There was a large obtuse marginal artery with a 60% proximal stenosis. The LAD has a patent mid LAD stent however there was TORRIE two flow and it was felt that the stent was under deployed. A Marlon four six Telugu guiding catheter was then advanced over guidewire to the aortic root. Wire was removed and catheter engaged in left main coronary artery. The patient received 87479 units of heparin. At that point a choice PT extra-support wire was placed across the area of stenosis into the distal LAD. The mid LAD stent was ballooned with a 2.75 noncompliant balloon to 12 atmospheres. TORRIE flow was noted to improve. It was still some residual dye noted at the proximal edge of the stent and a 2nd 2.75 by 8 mm drug-eluting stent was placed in the proximal mid LAD stent and dilated to 12 atmospheres. The balloon was removed and a 2.75 noncompliant balloon was advanced across the mid LAD stent and dilated to 18 atmospheres. Final results showed normal TORRIE flow no dissection and no residual stenosis. ACT postprocedure was 350. A sheathogram performed and Perclose device utilized to close the arteriotomy. Patient will be transferred to the floor for further management. He was given 150 mg of additional clopidogrel at the end of the procedure. He will continue with his usual dose of aspirin 81 mg daily and 75 mg daily which he took this morning. Summary: Successful PCI to the mid LAD stent which was felt to be under deployed with a 2.75 by 8 mm drug-eluting stent with improvement in TORRIE flow from TORRIE two to TORRIE three Report dictated by TRINI Euceda MD, MD Feb 16, 2024 12:56
[2024-02-16] MEDS ORDERED: TEMAZepam 30 MG CAP PO PRN (13:00)
[2024-02-16] MEDS ORDERED: NITROGLYCERIN 50MG/D5W 250ML 1 BOT IV PRN (13:00)
[2024-02-16 13:10] VITALS: BP_SYST 100; BP_SYST 101; BP_SYST 102; BP_SYST 108; BP_SYST 110; BP_SYST 112; BP_SYST 116; BP_DIAS 45; BP_DIAS 51; BP_DIAS 52; BP_DIAS 54; BP_DIAS 55; BP_DIAS 58; BP_DIAS 65; BP_DIAS 72; PULSE 56; RESP 20; TEMP 98.6
--- NOTE | 2024-02-16 15:07 | HMCSR ---
APPROVED REPORT EXAM: Two-dimensional and M-mode echocardiogram with Doppler and color Doppler. Study Details: Hx: cardiac stents INDICATION ICD: Chest Pain 2D Dimensions RVDd4.0 cmLVEF(%)71.0 (>50%)LVED Vol(simp.)134.0 mL IVSd0.7 (0.7-1.1cm)FS(%)40 %LVES Vol(simp.)57.5 mL LVDd4.7 (3.8-5.6cm)LA (2D)3.8 (1.6-4.0cm)LVEF(%, simp.)57 % PWd1.0 (0.7-1.1cm)Ao Root(2D)3.2 (2.0-3.7cm)LA ESV INDEX (4CH)25.00 mL/m2 IVSs0.7 cmLVOT diam2.2 (1.8-2.4cm)LA ESV INDEX (2CH)32.30 mL/m2 LVDs2.8 (2.5-4.0cm)LA ESV INDEX (BP)28.40 mL/m2 PWs1.1 cm M-Mode Dimensions EPSS1.3 cm LA (MM)4.1 (1.6-4.0cm) Ao Root(MM)3.4 (2.0-3.7cm) Aortic Valve AoV VTI0.4 mAo Mean GR6.0 mmHgLVOT VTI0.25 m HECTOR (VMAX)2.5 cm2AVA (VTI) 2.5 cm2 Mitral Valve MV E Vmax63.5 cm/sDECEL Xsgg316 ms MV A Vmax63.1 cm/sP 1/2 T77 ms E/A ratio1.0MVA (PHT)2.9 cm2 TDI E/E' Medial8.8E/E' Lateral5.8 Medial E' Peak V7.20 cm/sLateral E' Peak V10.90 cm/s Tricuspid Valve TR Vmax2.3 m/sRAP (EST) 3 qgZqYMBW88.5 mmHg TR Peak GR21.5 mmHg Left Ventricle The left ventricle is normal size. There is normal LV segmental wall motion. There is normal left soto tricular wall thickness. LVEF is 55-60%. Indeterminate diastolic dysfunction. Right Ventricle The right ventricle is normal size. The right ventricular systolic function is normal. Atria The left atrium size is normal. The right atrium is mildly dilated. Aortic Valve Aortic valve is trileaflet and opens well. Trivial aortic regurgitation is present. There is no aorti c valvular stenosis. Mitral Valve The mitral valve is normal in structure. There is trace mitral valve regurgitation noted. There is no mitral valve stenosis. Tricuspid Valve The tricuspid valve is normal in structure. There is trace tricuspid valve regurgitation noted. Pulmonic Valve The pulmonary valve is normal in structure. There is no pulmonic valvular regurgitation. Great Vessels The aortic root is normal in size. The IVC is normal in size and collapses >50% with inspiration. Pericardium There is no pericardial effusion. Other Information Quality : Adequate Conclusion LVEF is 55-60%.
[2024-02-16] MEDS: morPHINE 2 MG SYG IVP PRN (15:52)
[2024-02-16 16:08] VITALS: BP 108/75; PULSE 51; RESP 20; TEMP 98.6
[2024-02-16 18:21] VITALS: O2SAT 97
[2024-02-16 20:00] VITALS: BP 120/65; PULSE 61; RESP 20; TEMP 98.7
[2024-02-16 20:20] VITALS: O2SAT 98
[2024-02-17] VITALS: BP 117/73; PULSE 60; RESP 20; TEMP 98.7
[2024-02-17 04:00] VITALS: BP 130/76; PULSE 61; RESP 20; TEMP 98
[2024-02-17 05:40] LABS: HEMATOCRIT 39.8 % (42-54); MEAN CORPUSCULAR HEMOGLOBIN 31.3 pg (27.0-33.0); MEAN CORPUSCULAR HGB CONC 35.2 g/dL (32.0-36.0); RED BLOOD CELL COUNT(AUTO) 4.47 MIL/uL (4.50-6.20); RED CELL DISTRIBUTION WIDTH 12.5 % (11.0-15.5); WHITE BLOOD COUNT (AUTO) 10.4 K/uL (4.8-10.8)
[2024-02-17 05:56] LABS: PHOSPHORUS 3.5 mg/dL (2.5-4.9); POTASSIUM 3.9 mmol/L (3.5-5.1)
[2024-02-17] MEDS ORDERED: levoTHYROxine 125 MCG TABLET PO SCH (06:30)
--- NOTE | 2024-02-17 06:34 | PN ---
[facility] Cardiology Progress Note Cardiology progress note February 17 2024 Problems: 1. Unstable angina troponin negative 2. CAD status post recent stenting of the mid LAD with a 2.5 x 12 mm drug- eluting stent February 10, 2024 with residual 50% proximal RCA and 60% proximal obtuse marginal artery stenosis February 10, 2024 with documented TORRIE two flow in the LAD status post balloon angioplasty and placement of a 2.75 x 8 mm stent in the proximal portion of the mid LAD stent post dilated with a noncompliant balloon with improvement in LAD TORRIE flow 3. Hypothyroidism 4. Dyslipidemia This morning blood pressure is ranging between 03/21/2029 systolic heart rate is in the 60s the patient is afebrile. Hemoglobin 14 platelet count potassium 3.9 BUN 14 creatinine 1.0. The patient continues on aspirin atorvastatin clopidogrel famotidine insulin scale levothyroxine metoprolol succinate. At the time of the procedure the patient had TORRIE two flow improving to TORRIE three flow post upsizing his stent. He has been pain-free overnight and plans will be for discharge home on aspirin clopidogrel metoprolol and atorvastatin in addition to his thyroid replacement. He can follow up me in the office in 1-2 weeks. TRINI STUART MD Feb 17, 2024 06:34
[2024-02-17] MEDS: levoTHYROxine 25 MCG TABLET PO SCH (06:36)
[2024-02-17] MEDS: levoTHYROxine 112 MCG TABLET PO SCH (06:36)
[2024-02-17 07:00] VITALS: BP 127/73; PULSE 60; RESP 20; TEMP 98.4
--- NOTE | 2024-02-17 08:47 | EKG ---
[facility] Test Date: 2024-02-16 Test Time: 16:44:41 Pat Name: JACOBY NÚÑEZ Department[facility] Room: 227 1 Gender: M Assistant To The Vice President: [id number] : 1965 Requested By: TRINI STUART Order Number: [id number] Reading MD: Ilia Henson Measurements Intervals [place] Rate: 53 P: 16 UT: 188 QRS: 8 QRSD: 84 T: 34 QT: 420 QTc: 394 Interpretive Statements Sinus bradycardia Compared to ECG 02/15/2024 20:19:23 Sinus rhythm no longer present Electronically Signed On 02-17-2024 20:16:34 EPIC SPECIALIST by Ilia Henson Please click the below link to view image of tracing.
--- NOTE | 2024-02-17 08:50 | EKG ---
[facility] Test Date: 2024-02-17 Test Time: 05:28:07 Pat Name: JACOBY NÚÑEZ Department: [facility] Room: 227 1 Gender: M Hide Measuring Machine Operator: [id number] : 1965 Requested By: TRINI STUART Order Number: [id number] Reading MD: Ilia Henson Measurements Intervals [place] Rate: 61 P: 15 CO: 182 QRS: 8 QRSD: 90 T: 26 QT: 406 QTc: 409 Interpretive Statements Sinus rhythm Low voltage, precordial leads Compared to ECG 02/16/2024 16:44:41 Low QRS voltage now present Sinus bradycardia no longer present Electronically Signed On 02-17-2024 20:17:29 DRY CELL BATTERY ASSEMBLER by Ilia Henson Please click the below link to view image of tracing.
[2024-02-17 09:05] VITALS: O2SAT 96
[2024-02-17 11:00] VITALS: BP 113/69; PULSE 60; RESP 20; TEMP 98
[2024-02-17 16:00] VITALS: BP 130/69; PULSE 56; RESP 20; TEMP 98.3
--- NOTE | 2024-02-17 18:29 | NUR ---
Patient was discharged, all discharge documentation and personal items taken by patient and spouse. Patient informed to follow up with primary care provider in 3-[address] Adair on 02/25/2024 at 11:00A.M.. Scripts sent to [facility] on [facility] [address] in [place], [place]. Patient educated to follow compliance with his dual antiplatelet therapy to prevent further cardiac events. Patient and spouse at bedside verbalized understanding of education. IV and telemetry pack were removed, patient transported out of facility via wheelchair by NAVEED Morales.
--- NOTE | 2024-02-17 20:55 | DS ---
[facility] DISCHARGE SUMMARY Date Patient Seen: Feb 17, 2024 Time of Visit: 15:47 Supervising Physician: MARCOS CONLEY MD Primary Care Physician: CAMRYN AGOSTO MD (PCP) Outpatient Specialists: Inpatient Consults: Cardiology PROBLEM LIST: Acute chest pain r/o coronary syndrome, negative troponin x3 -s/p left heart catheterization with cardiac stent on 02/10/[address] Mohit Adair LV ejection fraction was 60% with no regional wall motion abnormality, per cardiac catheterization report on 02/10/2024 Hypertension Hypothyroidism Hypercholesteremia HPI AND HOSPITAL COURSE: Patient is a 58 year old with CAD status post recent stenting of the mid LAD with a 2.5 x 12 mm drug-eluting stent February 10, 2024 with residual 50% proximal RCA and 60% proximal obtuse marginal artery stenosis February 10, 2024 with documented TORRIE two flow in the LAD status post balloon angioplasty and placement of a 2.75 x 8 mm stent in the proximal portion of the mid LAD stent post dilated with a noncompliant balloon with improvement in LAD TORRIE flow He remains stable, not in distress, denies chest pain or SOB, he is on ASA , BB, statin and levothyroxine, will be discharge all arrangements has been done. PROCEDURES: as mentioned above DISCHARGE MEDICATIONS: medication list reconciled Pt hemodynamically stable and afebrile at time of discharge. PCP notified of james ferraro admission, hospital course and discharge. PHYSICAL EXAM: GENERAL: Alert, awake oriented x 3 HEENT: EOMI, Sclera non icteric, moist mucosa NECK: Supple, no JVD, trachea midline LUNGS: Clear breath sounds bilaterally. No wheezes HEART: Regular rate and rhythm. Normal S1 and S2, without murmurs ABD: Abdomen soft, nontender. Bowel sounds present EXT: No clubbing cyanosis or edema NEURO: Alert and oriented x3. No neuro deficits noted. FOLLOW-UP: Follow-up with PCP in 2-3 days RECOMMENDATIONS: See Discharge Instructions More than 30 minutes spent on discharge process, including evaluation of the patient, discussion with nursing staff, medication reconciliation and follow-up appointments ATTESTATION BY PHYSICIAN Documentation assistance provided by a scribe, information recorded by the scribe was done at my direction and has been reviewed and validated by me." YAEL RODRÍGUEZ MD I personally scribed for YAEL RODRÍGUEZ MD ([email or web address]) on 02/17/24 at 20:55. Electronically submitted by Porsche Joshua ([id number]). YAEL RODRÍGUEZ MD Feb 17, 2024 20:55
== END 2024-02-17 18:20 | disposition home or self-care (01) ==
LOC: EDH 20:17 → EDHIP 02-16 00:14 → 2DH 02-16 13:00
PROVIDERS: ADMIT Internal Medicine; ATTEND Internal Medicine
DX: I25.119 Atherosclerotic heart disease of native coronary artery with unspecified angina pectoris (principal); E78.00 Pure hypercholesterolemia, unspecified; E03.9 Hypothyroidism, unspecified; I77.1 Stricture of artery; R01.1 Cardiac murmur, unspecified; I10 Essential (primary) hypertension; Z95.5 Presence of coronary angioplasty implant and graft; Z79.82 Long term (current) use of aspirin; Z79.899 Other long term (current) drug therapy
CPT/HCPCS: 96374; 96375; 99285; 82550; 84484 ×4; 80048 ×2; 83880; 85025; 81003; 36415 ×3; 71045; 93005 ×3; 93454; 96376; 83036; 84443; 85347; 82948 ×6; 93306; 83735; 84100; 85027; J2270 ×2; J2405; C1769; C1887; C1894; C1874; C1760 ×2; Q9965; C1725; G0378 ×38; J7040; J3490; J1644 ×2; J2250; Q9967; C9600; 99156; 99157; J0461; J3010

== ENCOUNTER 2024-03-17 13:00 | Emergency (ER) | payer BC ==
[~2024-03-17] VITALS: Ht 188 cm; Wt 102.7 kg
[~2024-03-17 13:00] MED LIST changes: +CLOP-31 PO
--- NOTE | 2024-03-17 13:29 | ERN ---
General Chief Complaint: Chest Pain Stated Complaint: CP Time Seen by MD: 13:17 History of Present Illness Initial Comments Patient comes in with complaint of bradycardia to work. Patient had a mid LAD stent placed in January about six days apart. He has been keeping an eye on his heart rate as he has a smart watch. He is on metoprolol 25 area at all he was taking a half tablet and after the stent this was increased to a full tablet 25 mg of long-acting per day. Today he started feeling a bit of tightness and noticed that his heart rate was in the 40s on a smart watch. He went to the nurse and his heart rate was in the 30s. He believes his blood pressure was normal. He comes in for evaluation. During this time he felt a bit tight in his chest. Currently feels back to normal. Looking through his alarms he does have episodes of bradycardia down into the 40s relatively frequently. Patient is on Plavix baby aspirin metoprolol and a statin. Allergies: Uncoded Allergies: CAT DANDRUFF (Allergy, Unknown, 02/08/24) Home Meds Reported Medications Clopidogrel Bisulfate (Plavix) 75 Mg Tablet, 1 TAB PO DAILY for 30 Days, #30 TAB 0 Refills 02/16/24 [vitamin c w/awilda] No Conflict Check, 1 TAB PO DAILY 02/08/24 [mvi] No Conflict Check, 1 TAB PO DAILY 02/08/24 Cholecalciferol (Vitamin D3) (Vitamin D3) 125 Mcg (5000 Unit) Capsule, 1 CAP PO DAILY for 30 Days, #30 CAP 0 Refills 02/08/24 Zinc Sulfate (Zinc) 50 Mg Zinc (220 Mg) Tablet, 50 MG PO DAILY, TAB 02/08/24 Cyanocobalamin (Vitamin B-12) (Vitamin B12) 5,000 Mcg Tab.rapdis, 1 TAB PO DAILY for 30 Days, #30 TAB 0 Refills 02/08/24 [fexofenadine] No Conflict Check, 1 TAB PO AM 02/08/24 Aspirin (Aspirin EC) 81 Mg Tablet.dr, 1 TAB PO DAILY for 30 Days, #30 TAB 0 Refills 02/08/24 Atorvastatin Calcium (Atorvastatin Calcium) 20 Mg Tablet, 1 TAB PO DAILY 02/08/24 Metoprolol Succinate (Metoprolol Succinate) 25 Mg Tab.er.24h, 0.5 TAB PO DAILY 02/08/24 Nitroglycerin (Nitroglycerin) 0.4 Mg Tab.subl, 1 TAB SL AD PRN for CHEST PAIN 02/08/24 Levothyroxine Sodium (Levothyroxine Sodium) 137 Mcg Tablet, 1 TAB PO DAILY 02/08/24 Past Medical History Past Medical History: Other Medical History Other: CARDIAC STENTS X2 FEB 21 DR STUART Past Surgical History: Other Surgical History Other: CARDIAC STENT S ROS Dictation Ten systems reviewed and negative except as noted in HPI Physical Exam Physical Exam Dictation GEN: non toxic, NAD HEENT: atrumatic, PERRL, EOMI, conjunctivae normal NECK: Soft supple nontender Heart RRR, no murmurs Chest: No deformity Lungs: Lungs clear to auscultation Ab: Soft nondistended nontender Back: No midline step-offs. No gross deformity. No CVA tenderness : m/s: Moving all four extremities. No gross deformity Neuro: CN 2-12 intact. Moving all four extremities. Psych: Cooperative Results Laboratory and Microbiology Lab and Micro Result Laboratory Tests Test 03/17/24 13:48 White Blood Count 6.2 K/uL (4.8-10.8) Red Blood Count 4.82 MIL/uL (4.50-6.20) Hemoglobin 14.9 g/dL (14.0-18.0) Hematocrit 42.6 % (42-54) Mean Corpuscular Volume 88.4 fL (79-99) Mean Corpuscular Hemoglobin 30.9 pg (27.0-33.0) Mean Corpuscular Hemoglobin Concent 35.0 g/dL (32.0-36.0) Red Cell Distribution Width 12.8 % (11.0-15.5) Platelet Count 204 K/uL (130-400) Mean Platelet Volume 9.9 fL (7.5-10.5) Immature Granulocyte % (Auto) 0.2 % (0-1) Neutrophils (%) (Auto) 66.4 % (40.0-77.0) Lymphocytes (%) (Auto) 22.3 % (21.0-51.0) Monocytes (%) (Auto) 7.2 % (3.0-13.0) Eosinophils (%) (Auto) 3.4 % (0.0-8.0) Basophils (%) (Auto) 0.5 % (0.0-5.0) Neutrophils # (Auto) 4.1 K/uL (1.8-7.7) Lymphocytes # (Auto) 1.4 K/uL (1.0-4.8) Monocytes # (Auto) 0.5 K/uL (0.1-1.0) Eosinophils # (Auto) 0.21 K/uL (0.00-0.70) Basophils # (Auto) 0.03 K/uL (0.00-0.20) Absolute Immature Granulocyte (auto 0.01 K/uL (0-1) Nucleated Red Blood Cells 0.0 % (0.0-0.19) Sodium Level 144 mmol/L (136-145) Potassium Level 3.8 mmol/L (3.5-5.1) Chloride Level 105 mmol/L (101-111) Carbon Dioxide Level 32 mmol/L (21-32) Blood Urea Nitrogen 13 mg/dL (7-18) Creatinine 1.0 mg/dL (0.5-1.3) Glomerular Filtration Rate Calc 88 mL/min (>90) Random Glucose 100 mg/dL (70-105) Total Calcium 9.5 mg/dL (8.5-10.1) Total Bilirubin 0.4 mg/dL (0.2-1.0) Aspartate Amino Transf (AST/SGOT) 15 U/L (10-37) Alanine Aminotransferase (ALT/SGPT) 41 U/L (12-78) Alkaline Phosphatase 76 U/L (50-136) Troponin I High Sensitivity 5 ng/L (4-75) Total Protein 7.3 g/dL (6.0-8.3) Albumin 3.8 g/dL (3.5-5.0) MDM EKG Sinus rhythm 60 pr of 198 QRS of 98 QTC of 405 normal axis QRS complexes are narrow with good R-wave progression STT wave segments are otherwise unremarkable interpretation normal EKG. Patient is having episodes of bradycardia down into the 30s and 40s. Unclear what rhythm it was as it was not shown on the phone or his smart watch. Patient is in sinus rhythm here. Patient is beta blocked. We will likely need to decrease her stop his beta blockade. We will check labs here. ED Course Orders Procedure Category Date Status Time Cbc With Differential LAB 03/17/24 Complete 13:27 Comprehensive LAB 03/17/24 Complete Metabolic Panel 13:27 Troponin I High LAB 03/17/24 Complete Sensitivity 13:27 Chest 1vw RAD 03/17/24 Resulted 13:27 Vital Signs Date Time Temp Pulse Resp B/P (MAP) Pulse Ox O2 Delivery O2 Flow Rate FiO2 03/17/24 14:33 98.1 54 17 107/52 98 Room Air* 0 21 03/17/24 13:09 98.2 61 18 151/82 99 Room Air* 0 21 03/17/24 13:02 98.2 61 18 151/82 99 Room Air 0 Evaluation here unremarkable. Patient does have episodes of bradycardia on his phone although none here. We did have a call out to his block breaker although we have not heard back and it has been a few hours. Patient would like to go home. I am having the patient start cutting his metoprolol 25 mg in half. He does have a smart watch. If he continues to have drops of bradycardia to the 30s and 40s I did let him know that he should stop this altogether. Hopefully dropping this to half as enough to stop his episodes of bradycardia. Follow up with his block breaker. Return for any worsening symptoms or other concerns. DX & DISP Disposition: Discharge Departure Impression: Primary Impression: Bradycardia Condition: Stable Additional Instructions: Start cutting your metoprolol in half and take 12.5 mg per day instead of the 25 mg. If your heart rate continues to drop into the 40s stop taking your metoprolol altogether Return for any dizziness or difficulty breathing or recurrent pains. Follow up with Cardiology. Referrals: CAMRYN AGOSTO MD (PCP) GUANAKITO RIOS MD Mar 17, 2024 13:29
[2024-03-17 13:56] LABS: BASOPHILS # (AUTO) 0.03 K/uL (0.00-0.20); BASOPHILS % (AUTO) 0.5 % (0.0-5.0); EOSINOPHILS # (AUTO) 0.21 K/uL (0.00-0.70); EOSINOPHILS % (AUTO) 3.4 % (0.0-8.0); HEMATOCRIT 42.6 % (42-54); IMMATURE GRANULOCYTE ABSOLUTE 0.01 K/uL (0-1); LYMPHOCYTES # (AUTO) 1.4 K/uL (1.0-4.8); LYMPHOCYTES % (AUTO) 22.3 % (21.0-51.0); MEAN CORPUSCULAR HEMOGLOBIN 30.9 pg (27.0-33.0); MEAN CORPUSCULAR VOLUME 88.4 fL (79-99); MONOCYTES # (AUTO) 0.5 K/uL (0.1-1.0); MONOCYTES % (AUTO) 7.2 % (3.0-13.0); NEUTROPHILS # (AUTO) 4.1 K/uL (1.8-7.7); NEUTROPHILS % (AUTO) 66.4 % (40.0-77.0); PLATELET COUNT (AUTO) 204 K/uL (130-400); RED BLOOD CELL COUNT(AUTO) 4.82 MIL/uL (4.50-6.20); RED CELL DISTRIBUTION WIDTH 12.8 % (11.0-15.5); WHITE BLOOD COUNT (AUTO) 6.2 K/uL (4.8-10.8)
[2024-03-17 14:06] LABS: POTASSIUM 3.8 mmol/L (3.5-5.1)
[2024-03-17 14:15] LABS: ALBUMIN 3.8 g/dL (3.5-5.0); BILIRUBIN,TOTAL 0.4 mg/dL (0.2-1.0); TOTAL PROTEIN, SERUM 7.3 g/dL (6.0-8.3)
--- NOTE | 2024-03-17 14:32 | HMCIMG ---
CHEST 1VW REASON: cp COMPARISON: 02/15/2024 FINDINGS: Single view of the chest was obtained. Lungs are clear. Heart size is normal. There is no pulmonary vascular congestion. Mediastinum and bony thorax appear unremarkable. IMPRESSION: 1. Normal single view chest x-ray.
[2024-03-17 16:47] VITALS: BP 121/73; PULSE 52; RESP 17; TEMP 97.8; O2SAT 98
--- NOTE | 2024-03-18 04:55 | EKG ---
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
== END 2024-03-17 16:58 | disposition home or self-care (01) ==
LOC: EDH 13:00
DX: R00.1 Bradycardia, unspecified (principal); Z79.02 Long term (current) use of antithrombotics/antiplatelets; Z79.82 Long term (current) use of aspirin; Z79.890 Hormone replacement therapy; Z79.899 Other long term (current) drug therapy; Z95.5 Presence of coronary angioplasty implant and graft
CPT/HCPCS: 36415; 71045; 80053; 84484; 85025; 93005; 99284

== ENCOUNTER 2024-06-12 08:55 | Emergency (ER) | payer BC ==
[~2024-06-12] VITALS: Ht 188 cm; Wt 99.3 kg
[2024-06-12 09:45] LABS: BASOPHILS # (AUTO) 0.04 K/uL (0.00-0.20); BASOPHILS % (AUTO) 0.5 % (0.0-5.0); EOSINOPHILS # (AUTO) 0.24 K/uL (0.00-0.70); EOSINOPHILS % (AUTO) 3.2 % (0.0-8.0); HEMATOCRIT 44.3 % (42-54); IMMATURE GRANULOCYTE ABSOLUTE 0.02 K/uL (0-1); LYMPHOCYTES # (AUTO) 1.9 K/uL (1.0-4.8); LYMPHOCYTES % (AUTO) 25.1 % (21.0-51.0); MEAN CORPUSCULAR HEMOGLOBIN 30.4 pg (27.0-33.0); MEAN CORPUSCULAR HGB CONC 34.1 g/dL (32.0-36.0); MEAN CORPUSCULAR VOLUME 89.3 fL (79-99); MONOCYTES # (AUTO) 0.6 K/uL (0.1-1.0); MONOCYTES % (AUTO) 7.4 % (3.0-13.0); NEUTROPHILS # (AUTO) 4.8 K/uL (1.8-7.7); NEUTROPHILS % (AUTO) 63.5 % (40.0-77.0); PLATELET COUNT (AUTO) 216 K/uL (130-400); RED BLOOD CELL COUNT(AUTO) 4.96 MIL/uL (4.50-6.20); RED CELL DISTRIBUTION WIDTH 12.4 % (11.0-15.5); WHITE BLOOD COUNT (AUTO) 7.6 K/uL (4.8-10.8)
[2024-06-12 09:51] LABS: APPEARANCE,URINE CLEAR (CLEAR); BILIRUBIN,URINE NEGATIVE (NEGATIVE); COLOR,URINE COLORLESS (YELLOW); GLUCOSE, URINE (UA) NEGATIVE (NEGATIVE); KETONES,URINE NEGATIVE (NEGATIVE); LEUKOCYTE ESTERASE ,URINE NEGATIVE Leu/uL (NEGATIVE); NITRATE,URINE NEGATIVE (NEGATIVE); OCCULT BLOOD,URINE NEGATIVE (NEGATIVE); PROTEIN,URINE NEGATIVE (NEGATIVE); UROBILINOGEN,URINE 0.2 mg/dL (0.2-1.0)
[2024-06-12 09:52] LABS: ADD UA MICROSCOPIC NO
[2024-06-12 09:52] LABS: INR 1.07 (0.85-1.15); PROTHROMBIN TIME 11.3 SEC (9.6-11.6)
[2024-06-12 09:54] LABS: PARTIAL THROMBOPLASTIN TIME 27.6 SEC (26.3-35.5)
[2024-06-12 09:56] LABS: POTASSIUM 3.8 mmol/L (3.5-5.1)
--- NOTE | 2024-06-12 09:58 | HMCIMG ---
Exam Type: CHEST 1VW Clinical Information: cp Comparison: None Findings: The lungs are clear of infiltrates. The heart is normal in size. The bony and soft tissue structures of the chest are unremarkable. Impression: Clear lungs.
[2024-06-12 10:02] LABS: B-TYPE NATRIURETIC PEPTIDE 20 pg/mL (0-100)
[2024-06-12] MEDS: MAG/ALUM/SIMETH 30 ML UDCUP PO ONE (11:14)
[2024-06-12] MEDS: PANTOPrazole 40 MG/VIAL IVP ONE (11:15)
[2024-06-12] MEDS: LIDOCAINE HCL 2% VISCOUS 15 ML UDCUP PO ONE (11:15)
[2024-06-12] MEDS ORDERED: MAG-37 PO (11:48)
[2024-06-12 11:49] VITALS: BP 131/75; PULSE 54; RESP 14; TEMP 97.9; O2SAT 98
--- NOTE | 2024-06-12 11:49 | ERN ---
General Chief Complaint: Chest Pain Stated Complaint: CHEST PAIN/TIGHTNESS Time Seen by MD: 09:01 Source: patient History of Present Illness Initial Comments 58-year-old gentleman coming in to be evaluated for chest pressure. Per patient the chest pressure began two days ago. He states he was concerned because he does has a history of cardiac stent placement. He states that he wants to make she was not his stents. Allergies: Uncoded Allergies: CAT DANDRUFF (Allergy, Unknown, 02/08/24) Home Meds Reported Medications Clopidogrel Bisulfate (Plavix) 75 Mg Tablet, 1 TAB PO DAILY for 30 Days, #30 TAB 0 Refills 02/16/24 [vitamin c w/awilda] No Conflict Check, 1 TAB PO DAILY 02/08/24 [mvi] No Conflict Check, 1 TAB PO DAILY 02/08/24 Cholecalciferol (Vitamin D3) (Vitamin D3) 125 Mcg (5000 Unit) Capsule, 1 CAP PO DAILY for 30 Days, #30 CAP 0 Refills 02/08/24 Zinc Sulfate (Zinc) 50 Mg Zinc (220 Mg) Tablet, 50 MG PO DAILY, TAB 02/08/24 Cyanocobalamin (Vitamin B-12) (Vitamin B12) 5,000 Mcg Tab.rapdis, 1 TAB PO DAILY for 30 Days, #30 TAB 0 Refills 02/08/24 [fexofenadine] No Conflict Check, 1 TAB PO AM 02/08/24 Aspirin (Aspirin EC) 81 Mg Tablet.dr, 1 TAB PO DAILY for 30 Days, #30 TAB 0 Ref ills 02/08/24 Atorvastatin Calcium (Atorvastatin Calcium) 20 Mg Tablet, 1 TAB PO DAILY 02/08/24 Metoprolol Succinate (Metoprolol Succinate) 25 Mg Tab.er.24h, 0.5 TAB PO DAILY 02/08/24 Nitroglycerin (Nitroglycerin) 0.4 Mg Tab.subl, 1 TAB SL AD PRN for CHEST PAIN 02/08/24 Levothyroxine Sodium (Levothyroxine Sodium) 137 Mcg Tablet, 1 TAB PO DAILY 02/08/24 Past Medical History Past Medical History: Heart Disease, Hypothyroid, Other Medical History Other: CARDIAC STENTS X2 FEB 21 DR STUART Past Surgical History: Other Surgical History Other: CARDIAC STENT S ROS Dictation CONSTITUTIONAL: No chills, no fever, no weakness, no diaphoresis, no malaise. HEAD/FACE: No signs of trauma. EENT: No eye pain, no blurred vision, no tearing, no double vision, no ear pain, no ear discharge, no nose pain, no nasal congestion, no throat pain, no throat swelling, no mouth pain. RESPIRATORY: No cough, no orthopnea, no SOB, no stridor, no wheezing. CARDIOVASCULAR: chest pain, no edema, no palpitations, no syncope. GASTROINTESTINAL/ABDOMINAL: No abdominal pain, no constipation, no diarrhea, no nausea, no vomiting. GENITOURINARY: No abnormal discharge, no dysuria, no frequent urination, no hem aturia. No complaints of pain in the genitals. MUSCULOSKELETAL: No back pain, no gout, no joint pain, no joint swelling, no mu scle pain, no muscle stiffness, no neck pain. INTEGUMENTARY: No change in color, no change in hair/nails, no dryness, no lesion, no lumps, no rash. NEUROLOGICAL/PSYCH: No anxiety, not depressed, no emotional problem, no headache, no numbness, no pre-existing deficit, no history of seizures, no tremors, no weakness. HEMATOLOGIC/LYMPHATIC: Not anemic, no history of blood clots, no apparent bleeding, no bruising, glands not swollen. All Systems Negative, Except as Noted. Physical Exam Physical Exam Dictation VITAL SIGNS: Reviewed. GENERAL APPEARANCE: Alert, oriented x3, no acute distress, obese. HEAD AND FACE: Non-traumatic. EYES: PERRL, pink conjunctivas, eyelid no trauma, anterior chamber clear. EARS: Pinnas intact and no signs of trauma or erythema. Ear canals clear and no discharge. TMs no erythema. NOSE: No discharge, no bleeding. OROPHARYNX: Mouth normal, teeth no caries, tongue pink. Pharynx clear, no erythema. Tonsils no exudates, no abscesses noted. Mucous membrane moist. NECK: Supple, non-tender, no thyromegaly, no masses, no JVD, no bruits. BREAST: Deferred. CHEST: No tenderness, no crepitus, no paradoxical movement, no retractions. LUNGS: Clear, well-ventilated, symmetric, no rales, no wheezing, no rhonchi, no stridor, good breath sounds bilaterally. HEART: Regular rate, regular rhythm, no murmur, no gallops. VASCULAR: No peripheral edema. ABDOMEN: Soft, positive bowel sounds, nondistended, no guarding, epigastric ten surinder, no rebound, no masses no hepatomegaly, no splenomegaly, no Luciano's sign, no hernias. RECTAL: Deferred. GENITAL: Deferred. NEUROLOGICAL: Normal speech, gross motor function intact, gross sensory function intact. MUSCULOSKELETAL: Neck nontender, full range of motion, back nontender, full range of motion. EXTREMITIES: Nontender, full range of motion. SKIN: Color pink, dry, no turgor, no rash, no lacerations, no abrasions, no contusions. LYMPHATICS: Deferred. Results Laboratory and Microbiology Lab and Micro Result Laboratory Tests Test 06/12/24 09:10 06/12/24 09:19 06/12/24 10:35 Urine Color COLORLESS (YELLOW) Urine Appearance CLEAR (CLEAR) Urine pH 5.0 (5.0-8.0) Urine Specific Lyles 1.006 (1.001-1.031) Urine Protein NEGATIVE mg/dL (NEGATIVE) Urine Glucose (UA) NEGATIVE mg/dL (NEGATIVE) Urine Ketones NEGATIVE mg/dL (NEGATIVE) Urine Occult Blood NEGATIVE (NEGATIVE) Urine Nitrate NEGATIVE (NEGATIVE) Urine Bilirubin NEGATIVE mg/dL (NEGATIVE) Urine Urobilinogen 0.2 mg/dL (0.2-1.0) Urine Leukocyte Esterase NEGATIVE Bay/uL White Blood Count 7.6 K/uL (4.8-10.8) Red Blood Count 4.96 MIL/uL (4.50-6.20) Hemoglobin 15.1 g/dL (14.0-18.0) Hematocrit 44.3 % (42-54) Mean Corpuscular Volume 89.3 fL (79-99) Mean Corpuscular Hemoglobin 30.4 pg (27.0-33.0) Mean Corpuscular Hemoglobin Concent 34.1 g/dL (32.0-36.0) Red Cell Distribution Width 12.4 % (11.0-15.5) Platelet Count 216 K/uL (130-400) Mean Platelet Volume 9.9 fL (7.5-10.5) Immature Granulocyte % (Auto) 0.3 % (0-1) Neutrophils (%) (Auto) 63.5 % (40.0-77.0) Lymphocytes (%) (Auto) 25.1 % (21.0-51.0) Monocytes (%) (Auto) 7.4 % (3.0-13.0) Eosinophils (%) (Auto) 3.2 % (0.0-8.0) Basophils (%) (Auto) 0.5 % (0.0-5.0) Neutrophils # (Auto) 4.8 K/uL (1.8-7.7) Lymphocytes # (Auto) 1.9 K/uL (1.0-4.8) Monocytes # (Auto) 0.6 K/uL (0.1-1.0) Eosinophils # (Auto) 0.24 K/uL (0.00-0.70) Basophils # (Auto) 0.04 K/uL (0.00-0.20) Absolute Immature Granulocyte (auto 0.02 K/uL (0-1) Nucleated Red Blood Cells 0.0 % (0.0-0.19) Prothrombin Time 11.3 SEC (9.6-11.6) Prothromb Time International Ratio 1.07 (0.85-1.15) Activated Partial Thromboplast Time 27.6 SEC (26.3-35.5) Sodium Level 145 mmol/L (136-145) Potassium Level 3.8 mmol/L (3.5-5.1) Chloride Level 107 mmol/L (101-111) Carbon Dioxide Level 30 mmol/L (21-32) Blood Urea Nitrogen 16 mg/dL (7-18) Creatinine 1.0 mg/dL (0.5-1.3) Glomerular Filtration Rate Calc 88 mL/min (>90) Random Glucose 92 mg/dL (70-105) Total Calcium 9.4 mg/dL (8.5-10.1) Magnesium Level 2.00 mg/dL (1.80-2.40) Total Creatine Kinase 72 U/L (21-232) # Troponin I High Sensitivity 7 ng/L (4-75) 5 ng/L (4-75) B-Type Natriuretic Peptide 20 pg/mL (0-100) Labs Reviewed?: Yes EKG/XRAY/US/CT/MRI EKG Comment 06/12/2024 time 8:45 a.m. Ventricular rate [address] wave elevation or depression [place] 199 X-RAY Comment IMAGING REPORT Signed PATIENT: JACOBY NÚÑEZ MR#: [id number] : 1965 SEX: M AGE: 58 LOCATION: [facility] ORDER 3 STATUS: REG ER REPORT#: [id number] SERVICE 2 REASON: cp ORDERING PHYSICIAN: TAHIRA OLIVA MD PROCEDURE: CXR1VW - CHEST 1VW Exam Type: CHEST 1VW Clinical Information: cp Comparison: None Findings: The lungs are clear of infiltrates. The heart is normal in size. The bony and soft tissue structures of the chest are unremarkable. Impression: Clear lungs. DICTATED BY: JEROME EL MD DATE: 06/12/24954 ELECTRONICALLY SIGNED BY: JEROME EL MD DATE: 06/12/24957 [facility] [place] MDM: Differential diagnosis: Chest pain, NSTEMI, ACS, gastritis, GERD, Rationale: Tests considered and ordered secondary to shared decision making include: Previous outside records reviewed: Old ER visits. Patient is a 58-year-old gentleman coming in to be evaluated for epigastric discomfort. Patient was concerned because he does has a history of stent placement was hoping there was no cardiac issues present. Patient received a cardiac workup which was negative x2 troponin collected patient received GI cocktail and Protonix states he feels much better. Patient will be discharged in stable condition with a diagnosis of GERD gastritis with a history of stent placement. Patient will be discharged pain-free. ED Course Orders Procedure Category Date Status Time Cbc With Differential LAB 06/12/24 Complete 09:03 Prothrombin Time With LAB 06/12/24 Complete INR 09:03 B-Type Natriuretic LAB 06/12/24 Complete Peptide 09:03 Chest 1vw RAD 06/12/24 Resulted 09:03 12 Lead Ekg Tracing- EKG 06/12/24 Logged Technical 09:03 Magnesium LAB 06/12/24 Complete 09:03 Creatine Kinase, Total LAB 06/12/24 Complete 09:03 Troponin I High LAB 06/12/24 Complete Sensitivity 09:03 Urinalysis Profile LAB 06/12/24 Complete 09:03 Partial LAB 06/12/24 Complete Thromboplastin Time 09:03 Basic Metabolic Panel LAB 06/12/24 Complete 09:03 Troponin I High LAB 06/12/24 Complete Sensitivity 10:26 Lidocaine Hcl 2% PHA 06/12/24 Complete Viscous (Lidocaine Hcl 11:30 Mag/Alum/Simeth 30ml PHA 06/12/24 Complete (Maalox Plus 30ml) 11:30 Pantoprazole 40mg Inj PHA 06/12/24 Complete (Protonix 40mg Inj 11:30 Current Medications Medications (Trade) Dose Ordered Sig/Flory Route PRN Reason Start Time Stop Time Status Last Admin Dose Admin Al Hydroxide/Mg Hydroxide (MAALox PLUS 30ML) 30 ml ONCE ONCE PO 06/12/24 11:30 06/12/24 11:31 DC 06/12/24 11:14 Lidocaine HCl (Lidocaine HCl 2% Viscous) 10 ml ONCE ONCE PO 06/12/24 11:30 06/12/24 11:31 DC 06/12/24 11:15 Pantoprazole Sodium (PROTonix 40MG INJ) 40 mg ONCE ONCE IVP 06/12/24 11:30 06/12/24 11:31 DC 06/12/24 11:15 Vital Signs Date Time Temp Pulse Resp B/P (MAP) Pulse Ox O2 Delivery O2 Flow Rate FiO2 06/12/24 10:30 98.1 46 13 115/63 98 Room Air* 0 21 06/12/24 09:22 97.9 54 20 119/62 97 Room Air* 0 21 06/12/24 08:56 97.9 54 16 131/72 97 Room Air 0 HEART Score Response (Comments) Value History: Moderate suspicion (+1) 1 EKG: Normal 0 Age: 45-65yrs (+1) 1 Risk Factors: 1-2 risk factors (+1) 1 Initial Troponin: Normal limit (0) 0 HEART Score Risk: Low Risk for MACE (1-3) Total 3 DX & DISP Disposition: Discharge Departure Impression: Primary Impression: GERD (gastroesophageal reflux disease) Additional Impression: History of coronary artery stent placement Condition: Stable Scripts Mag Hydrox/Aluminum Hyd/Simeth (Maalox Advanced Suspension) 200 Mg-200 Mg-20 Mg/5 Ml Oral.susp 20 ML PO Q8H PRN for gerd for 14 Days, #840 ML 0 Refills Prov: TAHIRA OLIVA MD 06/12/24 Additional Instructions: You have been reviewed in the emergency department at [facility] after presenting with chest pain. After considering your history, your risk factors, your EKG and your blood test troponins, have been found to be at very low risk less than (1 in 100) of having a major adverse cardiac event (like heart attack) in the near future. In the " low risk" group, the risks of doing further tests and treatment as the inpatient outweighs the benefits. In many patients in the low risk group for the test of any sort or unnecessary, however he should discuss this further with his general practitioner who will understand the medical and personal backgrounds better. Because we have never declared you" no risk" we would suggest. 1 returning for medical review if you have further episodes of chest pain/arm pain or other concerning symptoms like dizziness, collapse, palpitations or shortness of breath. 2. Following up with your local doctor who will consider the need for further testing and will also ensure that any modifiable risk factors you may have for heart disease are optimally managed. Patient will be discharged in stable condition at the moment discharge patient states , no chest pain Referrals: CAMRYN AGOSTO MD (PCP) Time of Disposition: 11:46 TAHIRA OLIVA MD Jun 12, 2024 11:49
--- NOTE | 2024-06-13 06:30 | EKG ---
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
== END 2024-06-12 12:18 | disposition home or self-care (01) ==
LOC: EDH 08:55
DX: K21.9 Gastro-esophageal reflux disease without esophagitis (principal); E03.9 Hypothyroidism, unspecified; Z79.02 Long term (current) use of antithrombotics/antiplatelets; Z79.82 Long term (current) use of aspirin; Z79.890 Hormone replacement therapy; Z79.899 Other long term (current) drug therapy; Z95.5 Presence of coronary angioplasty implant and graft
CPT/HCPCS: 99284; 96374; 71045; 82550; 83735; 84484 ×2; 80048; 83880; 85025; 85610; 85730; 81003; 36415; 93005; J2470